=== PATIENT | female | born 2000 | race Caucasian/White ===

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

== ENCOUNTER 2021-01-05 16:35 | Inpatient (IN) | payer OTHER, SELFPAY ==
[2021-01-05] VITALS (62 sets, daily range): BP systolic 89–123; BP diastolic 45–88; PULSE 61–99; TEMP 36.3; O2SAT 98–100; BMI 29.5
[2021-01-05 20:03] LABS: Basophils Absolute Auto 0.1 K/mm3 (0.0-0.1); Basophils Percent Auto 0.4 % (0.2-1.2); Eosinophils Absolute Auto 0.1 K/mm3 (0-0.3); Eosinophils Percent Auto 0.7 % (0-4.4); Hematocrit 34.6 % (37.0-47.0); Hemoglobin 10.8 g/dL (12.0-15.0); Immature Granulocyte Absolute 0.11 K/mm3 (0.00-0.031); Immature Granulocyte Percent A 0.7 % (0-0.5); Lymphocytes Absolute Auto 1.95 K/mm3 (0.9-3.2); Lymphocytes Percent Auto 12.1 % (18.3-44.2); Mean Corpuscular HGB Conc 31.2 g/dl (32-36); Mean Corpuscular Hemoglobin 26.3 pg (26-34); Mean Corpuscular Volume 84.4 fl (80-100); Mean Platelet Volume 9.4 fl (7.4-10.4); Monocytes Absolute Auto 1.2 K/mm3 (0.1-0.6); Monocytes Percent Auto 7.3 % (2.6-8.5); Neutrophils Absolute Auto 12.7 K/mm3 (1.3-6.7); Neutrophils Percent Auto 78.8 % (45.5-73.1); Platelet Count Result 335 k/mm3 (150-375); Red Cell Distribution Width 15.6 % (11.5-14.5); White Blood Count 16.2 K/mm3 (4.5-10.0)
[2021-01-05] MEDS: LACTATED RINGERS 1,000 ML 125 ML IV CONT ×2 (20:05→21:16)
--- NOTE | 2021-01-05 22:52 | WPDANESEPPF ---
Anes - Initial Pre Proc Eval Procedure: labor epidural Date/Time: 01/05/21 22:52 Surgeon: Wilfredo Toribio MD Pre Op Diagnosis: labor pain Pre Op Diagnosis: Contractions Patient Data Age: 20 Gender: F Height: 1.68 m Weight: 83 kg Last Vital Signs Temp 36.3 C L 01/05/21 21:15 Pulse 69 01/05/21 22:46 BP 89/49 L 01/05/21 22:46 Pulse Ox 100 01/05/21 22:51 Allergies Allergy/AdvReac Type Severity Reaction Status Date / Time No Known Allergies Allergy Verified 12/23/20 13:28 Home Medications Medication Instructions Recorded Confirmed Type ferrous sulfate 12/23/20 History prenat.vits,greg,uvy-swqc-pelyi 1 tablet PO DAILY 12/23/20 12/23/20 History [ #2] Laboratory Tests 01/05/21 01/05/21 19:55 19:55 WBC 16.2 K/mm3 H K/mm3 (4.5-10.0) RBC 4.10 M/mm3 L M/mm3 (4.2-5.4) Hgb 10.8 g/dL L g/dL (12.0-15.0) Hct 34.6 % L % (37.0-47.0) MCV 84.4 fl fl (80-100) MCH 26.3 pg pg (26-34) MCHC 31.2 g/dl L g/dl (32-36) RDW 15.6 % H % (11.5-14.5) Plt Count 335 k/mm3 k/mm3 (150-375) MPV 9.4 fl fl (7.4-10.4) Immature Gran % (Auto) 0.7 % H % (0-0.5) Neut % (Auto) 78.8 % H % (45.5-73.1) Lymph % (Auto) 12.1 % L % (18.3-44.2) [place] % (Auto) 7.3 % % (2.6-8.5) Eos % (Auto) 0.7 % % (0-4.4) Baso % (Auto) 0.4 % % (0.2-1.2) Lymph # (Auto) 1.95 K/mm3 K/mm3 (0.9-3.2) [place] # (Auto) 1.2 K/mm3 H K/mm3 (0.1-0.6) Eos # (Auto) 0.1 K/mm3 K/mm3 (0-0.3) Baso # (Auto) 0.1 K/mm3 K/mm3 (0.0-0.1) Abs Immat Gran (auto) 0.11 K/mm3 H K/mm3 (0.00-0.031) Absolute Neuts (auto) 12.7 K/mm3 H K/mm3 (1.3-6.7) Absolute Nucleated RBC 0.0 K/mm3 K/mm3 (0.0-0.012) Nucleated RBC % 0.0 % % (0.0-0.2) Blood Type B Negative Antibody Screen Positive Antibody Identification Pending Antigen Identification Pending PRITI, IgG Interpret Pending PRITI, Poly Interpret Pending PRITI, Complement Interp Pending Patient hx anesthesia problems: none Family hx anesthesia problems: none Results Review: All pre-operative results and documents have been reviewed as part of the pre-operative evaluation. [facility] Family History Family History (Updated 12/23/20 @ 13:32 by Fausto Orozco RN) Father Hypertension Smoker Grandparent Diabetes mellitus Alzheimer disease Chronic obstructive pulmonary disease Social History Social History Substance use: never Spiritual care concerns: No Anes - Eval Final PreProcedure Day of Procedure 01/05/21 22:52 Patient weight: overweight ASA classification: II Anesthesia type and monitoring: regional epidural and standard monitoring Results Review: All pre-operative results and documents have been reviewed as part of the pre-operative evaluation. Informed Consent: The patient's anesthetic plan and its attendant risks and benefits were discussed with the patient/family/POA. Questions were solicited and answers provided to the satisfaction of the patient/family/POA.
--- NOTE | 2021-01-05 23:18 | LDADM ---
This patient, Peggy Callahan, was admitted to Labor/Delivery/Recovery 103 on 01/05/21 at 16:35. Plans for labor, pain management and were discussed with patient. Patient/family oriented to hospital policies and general routines including ID bracelet, bed and alarms, visiting hours, pain management, procedures, bathroom and other care routines, personal items, smoking policy, room service/diet and guest tray routines, infant security routines, and visiting hours. Patient/Family are encouraged to report perceived risks to care and to ask questions if they do not understand what they are told or what they should do. See OBIX for further documentation.
[2021-01-06] VITALS (116 sets, daily range): BP systolic 93–120; BP diastolic 38–101; PULSE 55–129; RESP 16–18; TEMP 36.4–37.3; O2SAT 86–100
[2021-01-06] MEDS: LACTATED RINGERS 1,000 ML 125 ML IV CONT (04:30)
[2021-01-06] MEDS: OXYTOCIN 30 UNITS/NS 500 ML 30 UNITS/500 ML BAG 999 UNITS IV CONT (08:21)
--- NOTE | 2021-01-06 08:33 | WPDOBADMIT ---
Obstetrics - Admit Note Admission Note: record reviewed. No pertinent additions to the history and/or any subsequent changes in the physical findings that are not consistent with the expected course of the were found. Additions to the history and/or subsequent changes in the physical findings follow. None.
--- NOTE | 2021-01-06 08:33 | WPDHPUPDATE1 ---
History and Physical Update Update Date/Time: 01/06/21 08:33 History and Physical has been reviewed, including an updated exam of the patient. There are NO changes in the patient's condition. Risks, benefits, and alternatives have been discussed and questions answered. Patient agrees to proceed with procedure.
--- NOTE | 2021-01-06 08:33 | PM.OBPRVD ---
OB - Delivery Note Procedure Route of delivery: Delivery repair: chromic Specimen: Yes Anesthesia type: Epidural Disposition: floor Narrative: Patient prepped and draped in usual manner for this procedure. Maternal expulsive efforts delivered vertex the rest of baby without difficulty. Cord was clamped and cut baby was passed off to the towel cabinet repairer who was in attendance due to meconium-stained fluid. Placenta delivered spontaneously. Small amount of oozing was noted at and periurethral E which was rendered hemostatic with a [id number] at 2 0 chromic suture. Uterus was well contracted no significant bleeding at this point seizure was considered terminated. Baby Weeks of gestation at delivery: 38 Infant gender: Male Weight (pounds): 5 Weight (ounces): 7 score one minute: 8 score five minutes: 9
[2021-01-06] MEDS: OXYTOCIN 30 UNITS/NS 500 ML 30 UNITS/500 ML BAG 125 UNITS IV CONT (08:43)
[2021-01-06] MEDS: BENZOCAINE 20% AER SPR (*SP) 56 GM CAN 1 SPRAY TOPICAL (10:35)
[2021-01-06] MEDS: WITCH HAZEL 40 PADS 1 PAD TOPICAL (10:35)
[2021-01-06] MEDS: ACETAMINOPHEN 325 MG TABLET 650 MG PO ×2 (10:35→17:15)
--- NOTE | 2021-01-06 10:53 | OBPPTRN ---
Patient transferred to post room # 286 via wheelchair accompanied by in open crib. Oriented to unit, room, information board, rooming in, admission packet and security measures. Patient verbalizes understanding. PT sole recipient or instructions and care. No barriers to learning identified. PT received instructions and care per one to one discussion, mom baby care guide and demonstration this shift.
[2021-01-06] MEDS: LANOLIN (LANSINOH) 7.5 GM CREAM 1 APPLIC TOPICAL (11:00)
[2021-01-06 11:41] LABS: Rapid Plasma Reagin Non-Reactive (NonReactive)
[2021-01-06] MEDS: MULTIVIT/MIN/PREN/FOL AC/IRON TABLET 1 TAB PO (12:00)
[2021-01-06] MEDS: DOCUSATE SODIUM 100 MG CAPSULE PO ×2 (12:00→17:16)
[2021-01-06] MEDS: IBUPROFEN 600 MG TABLET PO ×2 (12:00→17:16)
--- NOTE | 2021-01-06 12:25 | PC.NURSE ---
Mother called out for assist with feeding. Infant is able to freely thrust tongue past gum ridge and flange both lips. Skin is intact on both nipples, no redness and bruising noted. Reviewed feeding cues, frequencies, duration of feedings, feeding elimination flow sheet, and signs of adequate intake. Demonstrated stimulation techniques to wake for feeding. Assisted with infant to breast. Reviewed positioning/alignment in cross cradle, holding breast in ?U? hold and guided asymmetrical latch on. Reviewed rational for each. able to latch correctly within a few attempts. Infant nursed eagerly with steady draws and occasional/frequent swallowing noted, some pausing noted. Reviewed signs of a correct latch, effective nursing and suck swallow ratio. Suggested mother stimulate while feeding to increase stimulation for milk supply, for increased intake and to assist with maintaining deep latch. would slip to shallow latch causing tenderness. Demonstrated how to adjust latch more deeply while feeding if needed. Mother reports she can feel the difference in latch with no tenderness. Nipple care reviewed of lanolin after feedings, warm compresses as needed. Instructed mother to call out for RN assistance if she is unable to latch for feeding or she has discomfort with nursing. Instructed feeding should be initiated three hours from start of last feeding or if feeding cues are noted before. Mother voiced understanding of information shared.
[2021-01-06] MEDS: SIMETHICONE 80 MG TAB.CHEW PO (19:37)
[2021-01-07 03:45] VITALS: BP 105/70; PULSE 67; RESP 16; TEMP 36.7; O2SAT 100
[2021-01-07 05:43] LABS: Hematocrit 28.3 % (37.0-47.0); Hemoglobin 8.5 g/dL (12.0-15.0)
[2021-01-07] MEDS: POLYSACCHARIDE IRON COMPLEX 150 MG CAPSULE PO (07:18)
[2021-01-07] MEDS: MULTIVIT/MIN/PREN/FOL AC/IRON TABLET 1 TAB PO (07:18)
[2021-01-07] MEDS: IBUPROFEN 600 MG TABLET PO (07:18)
[2021-01-07 08:10] VITALS: BP 111/67; PULSE 81; RESP 16; TEMP 37; O2SAT 100
--- NOTE | 2021-01-07 08:38 | PM.OBDSVD ---
DS: Admitting Diagnosis Discharge Date 01/07/2021 Admitting Diagnosis OB - DS: Summary OB Procedures : None OB Procedures Intrapartum: Spontaneous Vag Delivery OB Procedures: : None Time Spent with Patient Time attestation: Total time spent providing and/or coordinating discharge services: DS: Data Data Completed and Pending Pending studies at discharge: Pending at discharge 01/06/21 09:31 Surgical [PTH] Routine Labs on day of discharge: Labs from last 24 hours 01/07/21 01/07/21 01/05/21 03:46 03:46 19:55 Hgb 8.5 L Hct 28.3 L RPR Non-reactive Blood Type B Negative Antibody Screen TNP Screen Negative Baby's Blood Type O pos Baby's PRITI Negative Doses of RhIg Required 1 Discharge Plan Discharge Discharging Clinician: Wilfredo Toribio Patient Disposition: Home, Self-Care Activity: as tolerated Diet: as tolerated Patient Instructions: Antibiotic Form Stand Alone Forms: General Discharge Information Follow-up/Referrals: Wilfredo Toribio MD [Physician] - 3 Weeks Discharge Medications: New ibuprofen 600 mg Tablet 600 mg PO Q6H PRN (Reason: Cramping) Qty: 30 RF: 0 Continued #2 Tablet 1 tablet PO DAILY RF: 0 ferrous sulfate 150 mg DAILY RF: 0 Date of admission: 01/05/21 16:35 Primary Care Provider: PHYSICIAN,[employer] TECHNICIAN Admitting Provider: Wilfredo Toribio Attending physician on admission: Wilfredo Toribio Condition: Stable
--- NOTE | 2021-01-07 10:13 | WPDANLDPN2 ---
Anes-Prog Note L&D Date/Time: 01/07/21 10:13 Comfortable throughout: labor and delivery Neuraxial method: epidural Epidural/Spinal procedure site: clean & non-tender Neuro status: Neuro function grossly intact. Cardiovascular status: normal Respiratory status: normal Airway patency: baseline Mental status: baseline Post-Op hydration status: normal Vital Signs: Last Vital Signs Temp 37.0 C 01/07/21 08:10 Pulse 81 01/07/21 08:10 Resp 16 01/07/21 08:10 BP 111/67 01/07/21 08:10 Pulse Ox 100 01/07/21 08:10 Pain score (VAS): 03/17 Post-procedural complaints: none Patient feedback: Patient satisfied with anesthetic care.
[2021-01-07] MEDS: RHO(D) IMMUNE GLOBULIN 300 MCG/2 ML SYRINGE IM (11:36)
--- NOTE | 2021-01-07 12:30 | PC.NURSE ---
Consult with pt., mother reports infant is sleepy after circumcision. Assured mother this is normal and should resolve within a few hours. Observed mother is able to independently latch infant with appropriate positioning/alignment. eagerly latches on first attempt with long rhythmical draws and frequent swallowing noted. She denies any nipple discomfort, is feeding as required and waking infant to feed if needed. Infant has had at least 8 effective feedings in the past 24 hours, and is currently meeting outcomes for weight, output, jaundice and feeding frequencies. Mother states she feels confident to continue effective at home. Reviewed transition to breast milk, signs of adequate intake, and engorgement/relief. Instructed to call ICP if intake/output less than required. Reviewed regular medications mother is taking. Information provided per Padma. Reviewed community resources on the [employer] website and in the Mom/Baby guide. Information on outpatient services provided. Mother has no further questions at this time. Mother reports she will be with her mother for assist with care. Assisted mother with a pump thru her insurance. Instructed feeding should be initiated three hours from start of last feeding or if feeding cues are noted before until seen by ICP. Mother voiced understanding of information shared.
--- NOTE | 2021-01-07 12:36 | PCCCNOTE ---
Received consult for teen; FOB not involved. Met with pt. and her mother at bedside. Pt. lives with her mother and father. She will discharge home with them along with today. She states her parents are supportive. She states having all needed items to care for at return home. She states being current on WIC. She has no other children. She confirms that FOB is not involved; she has no questions or concerns regarding this. Provided and counseling resources for her to review. She accepted same. Encouraged she contact any/all of interest. Nursing aware of above. No further care coordination needs indicated.
[2021-01-08 09:39] VITALS: BP 120/72; PULSE 78; RESP 20; TEMP 37.1; O2SAT 100
== END 2021-01-07 14:32 | disposition home or self-care (01) | DRG 560 ==
LOC: ANHLDR 20:11 → ANHOB2 01-06 11:11
PROVIDERS: Admitting Provider Obstetrics & Gynecology; Visit Provider Obstetrics & Gynecology
DX: O76 Abnormality in fetal heart rate and rhythm complicating labor and delivery (principal); O71.82 Other specified trauma to perineum and vulva; O77.0 Labor and delivery complicated by meconium in amniotic fluid; Z3A.38 38 weeks gestation of pregnancy; Z37.0 Single live birth
CPT/HCPCS: 36415; 85014; 85018; 85025; 85461; 86592; 86850; 86880; 86900; 86901; 86902; 88307; 90384; A9270; J2590; J2790; J2795; J7120

== ENCOUNTER 2021-06-21 19:11 | Emergency (ER) | payer OTHER, SELFPAY ==
[2021-06-21 19:13] VITALS: BP 116/69; PULSE 75; RESP 14; TEMP 36.2; O2SAT 100
--- NOTE | 2021-06-21 19:25 | ED.DENTAL ---
HPI - Dental/Oral General Chief complaint: Dental/Oral <Marleny Martin PA-C - Last Filed: 06/21/21 21:36> Stated complaint: left lower dental pain <ADAMA Andino Last Filed: 06/21/21 21:36> Time Seen by Provider: 06/21/21 19:20 <Marleny Martin PA-C - Last Filed: 06/21/21 21:36> History of Present Illness HPI Narrative: Patient is a 21-year-old female here for evaluation of left lower dental pain for the past 4 days. The pain is aggravated by cold liquids. She has a history of poor dentition, and does have follow-up with a dentist in 4 days. Denies relief after 1 g of Tylenol today. She is not taking any antibiotics. Denies trismus, fevers, swelling, trouble swallowing. Denies tobacco use currently, but she did smoke in the past. <Marleny Martin PA-C - Last Filed: 06/21/21 21:36> Related Data Home medications: Home Medications Medication Instructions Recorded Confirmed ferrous sulfate 150 mg DAILY 12/23/20 01/06/21 prenat.vits,greg,svp-tayd-uizjp 1 tablet PO DAILY 12/23/20 12/23/20 <ADAMA Andino Last Filed: 06/21/21 21:36> Allergies/adverse reactions: Allergies Allergy/AdvReac Type Severity Reaction Status Date / Time No Known Allergies Allergy Verified 06/21/21 20:47 <ADAMA Andino Last Filed: 06/21/21 21:36> Review of Systems Review of Systems: Gen.: Denies fevers or chills Eyes: Denies eye pain or visual change ENT: Reports dental pain. Denies congestion Respiratory: Denies shortness of breath or cough CV: Denies chest pain or palpitations GI: Denies abdominal pain nausea, emesis or diarrhea denies burning, urgency, frequency or hematuria Musculoskeletal: Denies back pain or muscle pain Neuro: Denies numbness, tingling, weakness or focal weakness Skin: Denies rash Except as documented, all other systems reviewed and negative <Marleny Martin PA-C - Last Filed: 06/21/21 21:36> All systems reviewed & are unremarkable except as noted in HPI and below <Marleny Martin PA-C - Last Filed: 06/21/21 21:36> [facility] Family History Family History: Family History (Updated 12/23/20 @ 13:32 by Fausto Orozco RN) Father Hypertension Smoker Grandparent Diabetes mellitus Alzheimer disease Chronic obstructive pulmonary disease <Marleny Martin PA-C - Last Filed: 06/21/21 21:36> Social History Social History: Social History Smoking status: Never smoker Substance use: never Spiritual care concerns: No <Marleny Martin PA-C - Last Filed: 06/21/21 21:36> Exam Narrative: Gen: Alert, oriented, no acute distress. Eyes: EOMI, no icterus ENT: Tolerating secretions. Tooth 16 is cracked. Dental caries throughout. No submandibular swelling or periapical abscess palpated. Pulm: Respirations even and unlabored, symmetric thorax expansion, no audible stridor or visible cyanosis CV: Regular rate per telemetry GI: No distension, no voluntary/involuntary guarding Neuro: AOx4, moves all extremities without apparent difficulty or weakness, follows commands Skin: No jaundice, no visible bruising, rashes, lesions or wounds on exposed skin Psych: Normal mood/affect, insight/judgement good, adequate fund of knowledge, recent/remote memory intact <Marleny Martin PA-C - Last Filed: 06/21/21 21:36> Course FOOD STYLIST/PA Physician Supervision For this patient encounter, I reviewed the FOOD STYLIST or PA documentation, treatment plan, and medical decision making. <Can Lopez MD - Last Filed: 06/22/21 03:13> Vital Signs Vital signs: Vital Signs Temperature 97.1 F L 06/21/21 19:13 Pulse Rate 75 06/21/21 19:13 Respiratory Rate 14 06/21/21 19:13 Blood Pressure 116/69 06/21/21 19:13 Pulse Oximetry 100 06/21/21 19:13 Temperature 97.1 F L 06/21/21 19:13 Pulse Rate 83 06/21/21 20:23 Respiratory Rate 14 06/21/21 19:13 Blood Pressure 107
[2021-06-21 20:23] VITALS: BP 107/74; PULSE 83; O2SAT 100
[2021-06-21] MEDS: IBUPROFEN 400 MG TABLET 800 MG PO (20:25)
== END 2021-06-21 21:01 | disposition home or self-care (01) ==
PROVIDERS: Emergency Provider Emergency Medicine; PCP Emergency Medicine
DX: K08.89 Other specified disorders of teeth and supporting structures (principal)
CPT/HCPCS: 99283; A9270

== ENCOUNTER 2021-07-15 13:28 | Emergency (ER) | payer OTHER, SELFPAY ==
[2021-07-15 13:48] VITALS: BP 101/62; PULSE 85; RESP 16; TEMP 37.2; O2SAT 99
--- NOTE | 2021-07-15 13:54 | ED.GENADULT ---
HPI - General Adult General Chief complaint: Wound/Laceration Stated complaint: Infected Belly Button Time Seen by Provider: 07/15/21 13:54 Source: patient Mode of arrival: ambulatory Limitations: no limitations History of Present Illness HPI narrative: 21-year-old female presents with complaint of tenderness, odor and drainage from bellybutton that she noticed yesterday. Denies piercing. Denies trauma. Afebrile. No other complaints today. All systems reviewed and negative except as noted above. Related Data Allergies Allergy/AdvReac Type Severity Reaction Status Date / Time No Known Allergies Allergy Verified 07/15/21 13:32 Review of Systems Review of Systems: CONSTITUTIONAL: Denies fever, chills, or sweats. EYES: Denies visual changes, redness, or discharge. ENT: Denies rhinorrhea, congestion, sore throat, or otalgia. CARDIOVASCULAR: Denies chest pain, palpitations, or edema. RESPIRATORY: Denies cough or dyspnea. GASTROINTESTINAL: Denies abdominal pain, nausea, vomiting, or diarrhea. GENITOURINARY: Denies dysuria or hematuria. SKIN: Denies rash or itching. Reports tenderness, drainage and odor from bellybutton. MUSCULOSKELETAL: Denies back pain, joint pain, or myalgia. NEUROLOGIC: Denies headache, numbness, or weakness. PSYCHIATRIC: Denies anxiety or depression. All other systems reviewed are negative, except as documented in HPI. [facility] Family History Family History (Updated 12/23/20 @ 13:32 by Fausto Orozco RN) Father Hypertension Smoker Grandparent Diabetes mellitus Alzheimer disease Chronic obstructive pulmonary disease Social History Social History Smoking status: Never smoker Substance use: never Spiritual care concerns: No Comments At time of signature, agree with nursing past medical, surgical, social and family history. There is no relevant family history pertinent to the presenting complaint. Exam Narrative: GENERAL: This is a well-nourished, well-developed patient, in no apparent distress. HEAD: normocephalic, atraumatic. EYES: PERRL. Sclera clear/white. Vision is grossly intact. EARS: External ears normal NOSE: External nose normal NECK: Neck supple, non-tender without lymphadenopathy, masses or thyromegaly. CARDIOVASCULAR: Regular rate and rhythm without murmurs, gallops, or rubs. RESPIRATORY: Clear to auscultation. Breath sounds equal bilaterally. No wheezes, rales, or rhonchi. GASTROINTESTINAL: Abdomen soft, non-tender, nondistended. Bowel sounds are active. No hepato-splenomegaly, or palpable masses. No guarding. SKIN: warm, Dry, intact with no suspicious lesions or rash, good texture and turgor. Erythema to umbilicus with mild swelling and yellowish malodorous drainage. NEURO: awake, alert, and oriented to person, place and time. There were no obvious focal neurologic abnormalities. EXTREMITIES: Normal range of motion to all extremities. Course Course Level of Care: Express Care Visit Vital Signs Vital signs: Vital Signs Temperature 37.2 C 07/15/21 13:48 Pulse Rate 85 07/15/21 13:48 Respiratory Rate 16 07/15/21 13:48 Blood Pressure 101/62 07/15/21 13:48 Pulse Oximetry 99 07/15/21 13:48 Temperature 37.2 C 07/15/21 13:48 Pulse Rate 85 07/15/21 13:48 Respiratory Rate 16 07/15/21 13:48 Blood Pressure 101/62 07/15/21 13:48 Pulse Oximetry 99 07/15/21 13:48 Reviewed Medical Decision Making MDM Narrative Medical decision making narrative: Patient is aware of diagnosis, understands and agrees to treatment plan. Anticipatory guidance given. Patient agrees to follow-up as directed and is aware of reasons to seek care at the emergency department. Portions of this record may have been created with voice recognition software Vital Signs Vital Signs: Vital Signs Temperature 37.2 C 07/15/21 13:48 Pulse Rate 85 07/15/21 13:48 Respiratory Rate 16 07/15/21 13:48 Blood Pressure 101/62 07/15/21 13:48 Pulse Oximetry 99 05/1
== END 2021-07-15 14:00 | disposition home or self-care (01) ==
PROVIDERS: Emergency Provider Nurse Practitioner Family
DX: L03.316 Cellulitis of umbilicus (principal)
CPT/HCPCS: 99213; G0463

== ENCOUNTER 2023-10-02 19:25 | Emergency (ER) | payer SELFPAY ==
[2023-10-02 19:28] VITALS: BP 108/64; PULSE 70; RESP 15; TEMP 37; O2SAT 100
--- NOTE | 2023-10-02 20:27 | ED.FEMALEGU ---
HPI - Female Genitourinary General Chief complaint: Urogenital-Female Stated complaint: std testing Time Seen by Provider: 10/02/23 20:15 Source: patient Mode of arrival: ambulatory Limitations: no limitations History of Present Illness HPI Narrative: Peggy is a 23-year-old female patient presenting to the ER today with complaints of possible STI exposure. She reports that her significant other had been cheating on her and came home and had vaginal intercourse with her. Reports that she has had some vaginal itching and slight odor without discharge. She denies any pelvic pain, abdominal pain, or back pain. Last menstrual period was at the beginning of the month. Denies any fevers, chills, or body aches. Related Data Allergies Allergy/AdvReac Type Severity Reaction Status Date / Time No Known Allergies Allergy Verified 07/15/21 13:32 Review of Systems Review of Systems: Pertinent positives per HPI. Patient denies any fever, chills, rash, headache, visual changes, dizziness, cough, runny nose, sore throat, shortness of breath, chest pain, palpitations, nausea, vomiting, diarrhea, constipation, abdominal pain, or any urinary issues. [facility] Family History Family History Father Hypertension Smoker Grandparent Diabetes mellitus Alzheimer disease Chronic obstructive pulmonary disease Social History Social History Smoking status: Never smoker Substance use: never Spiritual care concerns: No Comments At the time of my signature, I reviewed and agree with the nursing past medical, surgical, social, and family history. There is no relevant family history pertinent to the patient complaint. Exam Narrative: General: Well-developed, well nourished, in no apparent distress. Head: Normocephalic, atraumatic. Cardio: Regular rate and rhythm, s1 and s2 normal, no murmur appreciated. Resp: Clear to auscultation bilaterally, no rhonchi, rales, wheezing or rubs. Abdomen: Soft, pliable, bowel sounds present in all quadrants, non-tender to palpation, no organomegly, no CVAT tenderness. :Deferred Course Course Emergency Course: Portions of this record may have been created with voice recognition software. Vital Signs Vital signs: Vital Signs Temperature 37.0 C 10/02/23 19:28 Pulse Rate 70 10/02/23 19:28 Respiratory Rate 15 10/02/23 19:28 Blood Pressure 108/64 10/02/23 19:28 Pulse Oximetry 100 10/02/23 19:28 Oxygen Delivery Room Air 10/02/23 19:28 Temperature 37.0 C 10/02/23 19:28 Pulse Rate 70 10/02/23 19:28 Respiratory Rate 15 10/02/23 19:28 Blood Pressure 108/64 10/02/23 19:28 Pulse Oximetry 100 10/02/23 19:28 Oxygen Delivery Room Air 10/02/23 19:28 Vital signs reviewed MDM - Female Genitourinary MDM Narrative Medical decision making narrative: At the time of visit patient is resting comfortably on the exam table. Patient appears to be nontoxic. Labs: Urinalysis testing for was negative, urinalysis is positive for leukocytes, white blood cells, and bacteria., Trichomonas positive in the ER today. Chlamydia positive, gonorrhea negative, bacterial vaginosis pending, and genital culture pending for yeast Plan: Patient is concerned about sexual transmitted infection in the ER today. Trichomonas and chlamydia was positive. Will treat for probable UTI.Supportive measures were discussed with the patient and they voiced understanding discharge instructions and agrees to treatment plan. Return precautions reviewed Differential Diagnosis Differential diagnosis: Likely bacterial vaginosis, trichomoniasis, cervicitis and vaginitis Lab Data Labs: Lab Results 10/02/23 10/02/23 10/02/23 Range/Units 20:22 20:31 20:41 Urine Color Yellow (Yellow) Urine Appearance Clear (Clear) Urine pH 6.5 (5.0-9.0)
[2023-10-02 20:37] LABS: Appearance Urine Clear (Clear); Bacteria Urine 1+ /hpf; Bilirubin Urine Negative (Negative); Blood Urine Negative (Negative); Color Urine Yellow (Yellow); Glucose Urine UA Negative (Negative); Ketones Urine Negative (Negative); Leukocyte Esterase Ur 1+ LEU/UL (Negative); Nitrate Urine Negative (Negative); Non Pathogenic Casts 0-2; Protein Urine Negative (Negative); RBC Urine 0-2 /hpf (0-2); Specific Grav Ur 1.028 (1.001-1.035); Squamous Epithelial Cell Urine None Seen /hpf (Few); WBC Urine 21-50 /hpf (0-3); pH Urine 6.5 (5.0-9.0)
[2023-10-02 20:38] LABS: Add Urine Microscopic? YES
[2023-10-02 20:43] LABS: BEDSIDEPREGUCG Negative
[2023-10-02 21:34] LABS: Trichomonas Vag PCR DETECTED (NOT DETECTE)
[2023-10-02 22:07] LABS: Chlamydia trachomatis DETECTED (NOT DETECTE); Neisseria gonorrhoeae PCR NOT DETECTED (NOT DETECTE)
[2023-10-02 22:27] VITALS: PULSE 74; RESP 15; O2SAT 100
[2023-10-04 15:09] LABS: Bacterial Vaginosis POSITIVE (NEGATIVE)
== END 2023-10-02 22:28 | disposition home or self-care (01) ==
LOC: ANHED 22:06
PROVIDERS: Student in an Organized Health Care Education/Training Program; Emergency Provider Nurse Practitioner Family
DX: N39.0 Urinary tract infection, site not specified (principal); A59.01 Trichomonal vulvovaginitis; A74.9 Chlamydial infection, unspecified
CPT/HCPCS: 81001; 81025; 81513; 87070; 87077; 87086; 87088; 87186; 87491; 87591; 87661; 99284

== ENCOUNTER 2024-08-07 12:04 | Emergency (ER) | payer OTHER, SELFPAY ==
--- NOTE | ~2024-08-07 | US_ITS ---
EXAMINATION: US OB <=14 wk fetus w TV DATE: 08/07/2024 13:46 INDICATION: Vaginal bleeding during early TECHNIQUE: Real-time pelvic ultrasound utilizing both a transvaginal and transabdominal probe was pe rformed. The interpreting radiologist was not present for the study. COMPARISON: None. FINDINGS: The uterus measures 9.8 x 5.5 x 7.3 cm. There is an intrauterine gestational sac. A yolk sac and fet al pole are identified. The crown rump length measures 4 mm, which correlates with an estimated gesta tional age of 6 weeks and 1 days. Visualized grayscale imaging there appears to be heart motion . This appears be confirmed on the M-mode Doppler images however a definitive heart rate is unable be established. There is a trace amount of anechoic fluid within the endocervical canal measuring 1 mm in thickness. The right ovary measures 2.8 x 1.5 x 2.6 cm. The left ovary measures 2.3 x 2.3 x 1.6 cm. There are fe w small anechoic follicles in the right ovary. Vascular flow identified in both ovaries on color Dopp ler. There is no free fluid in the pelvis. IMPRESSION: 1. Single living fetus with visible heart motion identified but a definitive heart rate is unab le to be established on the provided images. 2. Gestational age by ultrasound of 6 weeks 1 day(s) +/- 4 day(s) with ultrasound estimated date of delivery (HALEY) of 04/01/2025. Reviewed, dictated and finalized at location A. IMPRESSION: 1. Single living fetus with visible heart motion identified but a definit yamilka heart rate is unable to be established on the provided images. 2. Gestational age by ultrasound of 6 weeks 1 day(s) +/- 4 day(s) with ultraso und estimated date of delivery (HALEY) of 04/01/2025.
--- OUTSIDE RECORDS SUMMARY | 2024-08-07 12:09 | XMS_ITS | Clinical Summary ---
Author Organization [facility] Address [address] [place] [address] Care Team Providers Care Timber Killer Name Role Phone No, Physician Primary Care Provider [phone] Allergies Active Allergy Reactions Criticality Noted Date Comments Coconut Rash Medium 01/04/2024 Medications acetaminophen (TYLENOL) 500 mg tabletIndicatio ns:Back Pain,Pain Take 1 tablet (500 mg total) by mouth every 6 (six) hours as needed for pain 30 tablet 2 Active EPINEPHrine 0.3 mg/0.3 mL auto-injection syringeIndicati ons:Anaphylaxis Inject to outer thigh as needed for severe allergic reaction (examples, but not limited to: difficulty breathing, throat swelling) 2 each 2 4 Active Social History Tobacco Use Types Packs/Day Years Used Date Smoking Tobacco: Never Assessed Personal Safety Answer Date Recorded Have you ever been in or are you currently in a harmful physical or emotional relationship or is someone making you feel afraid or unsafe? 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 Gender Identity Not on file Sexual Orientation Not on file Obstetrics History Last Filed Vital Signs Vital Sign Reading Time Taken Comments Blood Pressure 101/69 01/04/2024 7:17 PM CDT Pulse 75 01/04/2024 7:17 PM CDT Temperature 36.7 C (98.1 F) 01/04/2024 7:17 PM CDT Respiratory Rate 18 01/04/2024 7:17 PM CDT Oxygen Saturation 99% 01/04/2024 7:17 PM CDT Inhaled Oxygen Concentration - - Weight 65.8 kg (145 lb 1 oz) 01/04/2024 5:30 PM CDT Height 170.2 cm (5' 7) 01/04/2024 5:30 PM CDT Body Mass Index 22.72 01/04/2024 5:30 PM CDT Plan of Treatment Health Maintenance Due Date Last Done Comments Cervical Cancer Screening 2001 Depression Screening 2001 Hepatitis C Screening 2001 Regular Well Visit/Exam 18-64 2019 Influenza Vaccine (Season Ended) 2024 DTaP/Tdap/Td Vaccine (8 - Td or Tdap) 10/23/2032 10/23/2022, 09/20/2012, 06/15/2006, Additional history exists Hepatitis B Screening Completed 04/06/2002 , 2001, 2001 Pneumococcal vaccine <65 Completed 003, 2001, 2001, Additional history exists Varicella Vaccines Completed 09/08/2011, 07/03/2002 HPV Vaccines Completed 11/07/2015, 09/20/2012 Meningococcal B Vaccine Completed 07/15/2018, 06/14 Insurance [facility] PLUS [employer] [facility] HMO [facility] Care Teams Timber Killer Relationship Specialty Start Date End Date No, Physician PCP - General 09/18/23
--- OUTSIDE RECORDS SUMMARY | 2024-08-07 12:09 | XMS_ITS | Clinical Summary ---
Author Organization [facility] Address [address] [place] [address] Care Team Providers Care Grant Officer Name Role Phone Trell Russell MD Primary Care Provider Source Comments [facility],non-owned Affiliates and Associated Physician Practices is amultiple site organization consisting of ambulatory clinics and hospital sitesin [place], [place], [place] and [place]. This disclosure is being madepursuant to the Care Everywhere program and may not contain all information available regarding this patient. 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 Gender Identity Not on file Sexual Orientation Not on file Last Filed Vital Signs Vital Sign Reading Time Taken Comments Blood Pressure 123/74 02/07/2023 10:16 PM AUTOMATIC BLOCKER Pulse 75 02/07/2023 10:16 PM AUTOMATIC BLOCKER Temperature 36.7 C (98.1 F) 02/07/2023 10:16 PM AUTOMATIC BLOCKER Respiratory Rate 17 02/07/2023 10:16 PM AUTOMATIC BLOCKER Oxygen Saturation 100% 02/07/2023 10:16 PM AUTOMATIC BLOCKER Inhaled Oxygen Concentration - - Weight 59 kg (130 lb) 02/07/2023 10:16 PM AUTOMATIC BLOCKER Height 170.2 cm (5' 7) 02/07/2023 10:16 PM AUTOMATIC BLOCKER Body Mass Index 20.36 02/07/2023 10:16 PM AUTOMATIC BLOCKER Plan of Treatment Health Maintenance Due Date Last Done Comments PAP SMEAR 2001 HIV SCREENING 2016 HPV VACCINE (1 - 3-dose series) 2016 MENINGOCOCCAL (Group B) VACC INE SHARED DECISION-MAKING (1 of 2 - Standard) 2017 DTAP/TDAP/TD VACCINES (1 - Tdap) 2020 HEPATITIS B VACCINE (1 of 3 - 19+ 3-dose series) 2020 CHLAMYDIA/GONORRHEA SCREENING 06/21/2023 06/20/2022 COVID-19 VACCINE (1 - 2023-2 5 season) 2023 DEPRESSION SCREENING 03/08/2024 INFLUENZA VACCINE (Season Ended) 2024 ZOSTER VACCINE (1 of 2) 2051 HEPATITIS C SCREENING Completed 06/20/2022 HIB VACCINE Aged Out No longer eligi ble based on patient's age to complete this topic MENINGOCOCCAL GROUPS A/C/Y/W VACCINE Aged Out No longer eligible b ased on patient's age to complete this topic PNEUMOCOCCAL VACCINE Aged Out No long er eligible based on patient's age to complete this topic Insurance [facility] [place] [address] Care Teams Grant Officer Relationship Specialty Start Date End Date Trell Russell MD [address] [place] [address] PCP - General 07/07/21
--- OUTSIDE RECORDS SUMMARY | 2024-08-07 12:09 | XMS_ITS | Referral Summary ---
Author Organization [facility] Address [address] [place] [address] Care Team Providers Care Manager Animation Name Role Phone No, Physician Primary Care Provider [phone] Allergies Active Allergy Reactions Criticality Noted Date [...] on file Legal Sex Female 7:16 AM COMMIS CHEF Gender Identity Not on file Sexual Orientation [...] 01/04/2024 5:30 PM CDT Plan of Treatment Not on file Insurance [facility] CHOICE PLUS [facility] HMO/PPO Address: [address] [address] [place] [address] [facility] HMO [facility] CHOICE PLUS [facility] H[facility]/PPO Address: [address] [place] [address] [facility] CHOICE PLUS [facility] HMO/PPO Address: [address] [place] [address] Care Teams Manager Animation Relationship Specialty Start Date End Date No, Physician PCP - General 09/18/23
[2024-08-07 12:15] VITALS: BP 117/56; PULSE 75; RESP 17; TEMP 36.6; O2SAT 100
[2024-08-07 13:20] LABS: Add Urine Microscopic? YES; Appearance Urine Clear (Clear); Bacteria Urine 4+ /hpf; Bilirubin Urine Negative (Negative); Blood Urine Trace (Negative); Color Urine Yellow (Yellow); Glucose Urine UA Negative (Negative); Ketones Urine Negative (Negative); Leukocyte Esterase Ur 2+ LEU/UL (Negative); Nitrate Urine Positive (Negative); Non Pathogenic Casts 0-2; Protein Urine Negative (Negative); RBC Urine 0-2 /hpf (0-2); Specific Grav Ur 1.019 (1.001-1.035); Squamous Epithelial Cell Urine Occasional /hpf (Few); Urobilinogen Urine 0.2 mg/dL (<2.0); WBC Urine 21-50 /hpf (0-3)
[2024-08-07 13:26] LABS: Alanine Aminotransferase 11 U/L (6-35); Albumin Level 4.2 g/dL (3.5-5.1); Alkaline Phosphatase 69 U/L (38-126); Anion Gap 8 mmol/L (4-12); Aspartate Amino Transferase 22 U/L (14-36); Bilirubin,Total 0.3 mg/dL (0.2-1.3); Blood Urea Nitrogen 10 mg/dL (7-17); Calcium 9.5 mg/dL (8.4-10.2); Carbon Dioxide 24 mmol/L (22-30); Chloride 105 mmol/L (98-107); Estimated CRCL calculation 122 ml/min; Estimated Glomerular Filt Rate > 60; Glucose 87 mg/dL (65-110); Potassium 4.1 mmol/L (3.4-5.0); Sodium 137 mmol/L (137-145)
--- OUTSIDE RECORDS SUMMARY | 2024-08-07 14:40 | XMS_ITS | Clinical Summary ---
Author Organization 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 Gender Identity Not on file Sexual Orientation [...] Meningococcal B Vaccine Completed 07/15/2018, 06/14 Insurance [facility]PPO Address: [facility] [address] [place] [address] AETNA [facility] HMO [facility] PLUS [facility]/PPO Address: [address] [address] [place] [address] [facility] CHO[facility] PLUS [facility] H[facility]/PPO Address: [address] [address] [place] [address] Care Teams Civil Celebrant Relationship Specialty Start Date End Date No, Physician PCP - General 09/18/23
--- OUTSIDE RECORDS SUMMARY | 2024-08-07 14:40 | XMS_ITS | Referral Summary ---
Author Organization [facility] Address [address] [place] [address] Care Team Providers Care Machine Records Units Supervisor Name Role Phone No, Physician Primary Care Provider [phone] Allergies Active Allergy Reactions Criticality Noted Date [...] on file Legal Sex Female 7:16 AM BIT BENDER Gender Identity Not on file Sexual Orientation [...] Plan of Treatment Not on file Insurance [facility] CHOICE PLUS [facility] HMO [facility] PLUS [facility] PL[facility] Care Teams Machine Records Units Supervisor Relationship Specialty Start Date End Date No, Physician PCP - General 09/18/23
--- OUTSIDE RECORDS SUMMARY | 2024-08-07 14:40 | XMS_ITS | Clinical Summary ---
Author Organization [facility] [employer] Address [address] [place] [address] Care Team Providers Care Automobile Service Writer Name Role Phone Trell Russell MD Primary Care Provider Source Comments [facility] [employer],non-owned Affiliates and Associated Physician Practices is amultiple site organization consisting of ambulatory clinics and hospital sitesin [place], [place], [place] and [place]. This disclosure is being madepursuant to the Care Everywhere program and may not contain all information available regarding this patient. Last updated 17.[facility] [employer] Allergies No known active allergies Social History Tobacco Use Types Packs/Day Years Used Date Smoking Tobacco: Never Assessed Comments Unknown Sex and Gender Information Value Date Recorded Sex Assigned at Not on file Legal Sex Female 7:17 AM DREDGE HAND Gender Identity Not on file Sexual Orientation Not on file Last Filed Vital Signs Vital Sign Reading Time Taken Comments Blood Pressure 123/74 02/07/2023 10:16 PM DREDGE HAND Pulse 75 02/07/2023 10:16 PM DREDGE HAND Temperature 36.7 C (98.1 F) 02/07/2023 10:16 PM DREDGE HAND Respiratory Rate 17 02/07/2023 10:16 PM DREDGE HAND Oxygen Saturation 100% 02/07/2023 10:16 PM DREDGE HAND Inhaled Oxygen Concentration - - Weight 59 kg (130 lb) 02/07/2023 10:16 PM DREDGE HAND Height 170.2 cm (5' 7) 02/07/2023 10:16 PM DREDGE HAND Body Mass Index 20.36 02/07/2023 10:16 PM DREDGE HAND Plan of Treatment Health Maintenance Due Date [...] patient's age to complete this topic Insurance [facility] [place] [address] Care Teams Automobile Service Writer Relationship Specialty Start Date End Date Trell Russell MD [address] [place] [address] PCP - General 07/07/21
[2024-08-07 15:40] VITALS: BP 107/64; PULSE 75; RESP 16; TEMP 36.8; O2SAT 100
[2024-08-07 15:40] LABS: Trichomonas Vag PCR DETECTED (NOT DETECTE)
[2024-08-07 15:45] VITALS: BP 107/64; PULSE 76; RESP 16; O2SAT 100
[2024-08-07] MEDS: RHO(D) IMMUNE GLOBULIN 300 MCG/2 ML SYRINGE IM (15:51)
[2024-08-07 16:19] LABS: Chlamydia trachomatis NOT DETECTED (NOT DETECTE); Neisseria gonorrhoeae PCR NOT DETECTED (NOT DETECTE)
--- NOTE | 2024-08-07 16:48 | ED.GENADULT ---
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 Approximately weeks in gestation. Follows with Dr. Toribio. No dysuria. Concern for miscarriage. SAB 1. Related Data Allergies Allergy/AdvReac Type Severity Reaction Status Date / Time coconut AdvReac Intermediate Rash Verified 08/07/24 12:05 Review of Systems Review of Systems: All systems reviewed & are unremarkable except as noted in HPI and below Constitutional: Constitutional: Reports no additional constitutional complaints Cardiovascular: Cardiovascular: Reports no additional cardiovascular complaints Respiratory: Respiratory: Reports no additional respiratory complaints Gastrointestinal: Gastrointestinal: Reports no additional gastrointestinal complaints Genitourinary: Genitourinary: Reports no additional female genitourinary complaints [facility] Surgical History Surgical History (Updated 07/25/24 @ 16:14 by KATHERYN Pradhan) History of appendectomy Family History Family History Father Hypertension Smoker Grandparent Diabetes mellitus Alzheimer disease Chronic obstructive pulmonary disease Social History Social History (Updated 07/25/24 @ 16:15 by KATHERYN Pradhan) Smoking status: Never smoker Second hand tobacco smoke exposure: No Alcohol intake: never Substance use: never Substance use type: does not use Do You Feel Safe in your Home?: Yes Lack of Transportation: No Lack of Food: Never True Current Housing: I Have Housing Concerned About Future Housing: No Difficulty Paying Gas/Electric Bills: No Difficulty Paying for Meds: No Currently Unemployed: No Education: High School Diploma/GED Difficulty w/ Childcare or Family Care: No Living arrangements: other Additional living arrangements comments: single Occupation/Education: occupation Additional occupation/education comments: [employer] Gender identity (if verbalized by the patient): Female Sexual Orientation (if Verbalized by the Patient): Straight or Heterosexual Spiritual care concerns: No Exam Narrative: GENERAL: Well-appearing, well-nourished, and in no acute distress. HEAD: Normocephalic, atraumatic. ENT: Mucous membranes moist. CHEST: Clear to auscultation. No respiratory distress. HEART: Regular rate and rhythm. Normal peripheral pulses. ABDOMEN: Soft, nontender, nondistended. : Normal external genitalia, cervix nonfriable, pooling yellow discharge. EXTREMITIES: Normal range of motion. No edema. SKIN: Warm, dry, no rash. NEURO: Alert and oriented x3. PSYCH: Normal mood and affect. Course Course Emergency Course: Patient resting comfortably. Informed of results. Heartbeat identified but we do not know the rate. It may be low and patient may have threatened miscarriage. Also discussed STI need for her partner to be treated. She verbalized understanding. Vital Signs Vital signs: Vital Signs Temperature 97.9 F 08/07/24 12:15 Pulse Rate 75 08/07/24 12:15 Respiratory Rate 17 08/07/24 12:15 Blood Pressure 117/56 L 08/07/24 12:15 Pulse Oximetry 100 08/07/24 12:15 Oxygen Delivery Room Air 08/07/24 12:15 Temperature 98.3 F 08/07/24 15:40 Pulse Rate 76 08/07/24 15:45 Respiratory Rate 16 08/07/24 15:45 Blood Pressure 107/64 08/07/24 15:45 Pulse Oximetry 100 08/07/24 15:45 Oxygen Delivery Room Air 08/07/24 12:15 Medical Decision Making Vital Signs Vital Signs: Vital Signs Temperature 97.9 F 08/07/24 12:15 Pulse Rate 75 08/07/24 12:15 Respiratory Rate 17 08/07/24 12:15 Blood Pressure 117/56 L 08/07/24 12:15 Pulse Oximetry 100 08/07/24 12:15 Oxygen Delivery Room Air 08/07/24 12:15 Temperature 98.3 F 08/07/24 15:40 Pulse Rate 76 08/07/24 15:45 Respiratory Rate 16 08/07/24 15:45 Blood Pressure 107/64 08/07/24 15:45 Pulse Oximetry 100 08/07/24 15:45 Oxygen Delivery Room Air 08/07/24 12:15 Lab Data 08/07/24 13:10 Labs: Lab Results 08/07/24 08/07/24 Range/Units 13:10 14:38 Sodium 137 (137-145) mmol/L Potassium 4.1 (3.4-5.0) mmol/L Chloride 105 (98-107) mmol/L Carbon Dioxide 24 (22-30) mmol/L Anion Gap 8 (4-12) mmol/L BUN 10 (7-17) mg/dL Creatinine 0.59 L (0.7-1.0) mg/dL Estim Creat Clear Calc 122 ml/min Estimated GFR > 60 (59 - ) Glucose 87 (65-110) mg/dL Calcium 9.5 (8.4-10.2) mg/dL Total Bilirubin 0.3 (0.2-1.3) mg/dL AST 22 (14-36) U/L ALT 11 (6-35) U/L Alkaline Phosphatase 69 (38-126) U/L Total Protein 8.0 (6.3-8.2) g/dL Albumin 4.2 (3.5-5.1) g/dL Beta HCG, Quant 27800.00 mIU/ML Urine Color Yellow (Yellow) Urine Appearance Clear (Clear) Urine pH 6.0 (5.0-9.0) Ur Specific [place] 1.019 (1.001-1.035) Urine Protein Negative (Negative) mg/dL Urine Glucose (UA) Negative (Negative) mg/dL Urine Ketones Negative (Negative) mg/dL Ur Blood (Man) Trace (Negative) Urine Nitrate Positive H (Negative) Urine Bilirubin Negative (Negative) Urine Urobilinogen 0.2 (<2.0) mg/dL Leukocyte Esterase Rfl 2+ H (Negative) JORJE/UL Urine RBC 0-2 (0-2) /hpf Urine WBC 21-50 H (0-3) /hpf Ur Squamous Epith Cells Occasional (Few) /hpf Urine Bacteria 4+ H /hpf Urine Casts 0-2 C. trachomatis (PCR) Not detected (NOT DETECTE) N. gonorrhoeae (PCR) Not detected (NOT DETECTE) T. vaginalis (PCR) Detected A (NOT DETECTE) Bact Vaginosis Panel Pending Blood Type B Negative Antibody Screen Negative Screen Not Reportable Baby's Blood Type Not Reportable Baby's PRITI Not Reportable Doses of RhIg Required 1 Imaging Data Radiologist's impression: ITS Impressions Obstetrics Ultrasound 08/07/24 13:46 IMPRESSION: 1. Single living fetus with visible heart motion identified but a definitive heart rate is unable to be established on the provided images. 2. Gestational age by ultrasound of 6 weeks 1 day(s) +/- 4 day(s) with ultrasound estimated date of delivery (HALEY) of 04/01/2025. Discharge Plan Discharge Clinical Impression: Trichomoniasis of vagina, Urinary tract infection during , Threatened miscarriage Patient Disposition: Home Condition: Stable Instructions: Antibiotic Form, Trichomoniasis (ED), Urinary Tract Infection in (ED) Additional Instructions: You have trichomoniasis. Make sure your sexual partner is also treated. You should not have sex until you have both been fully treated and are no longer symptomatic. Additionally you have a urinary infection that you will be treated for. You did receive RhoGAM for your vaginal bleeding because your blood type is B negative. Your ultrasound could not detect the speed of your baby's heart rate, you will need a follow-up ultrasound in the next week. Follow-up with your OB. Patient Language: Slovenian Prescriptions: New metronidazole 500 mg tablet 500 mg PO BID Qty: 14 0RF cephalexin 500 mg capsule 500 mg PO QID 7 Days Qty: 28 0RF Follow-up/Referrals: Wilfredo Toribio MD [Physician] - 1 Week UNKNOWN,DOCTOR [Primary Care Provider] - Stand Alone Forms: Work/School Release IP
[2024-08-08 20:48] LABS: Bacterial Vaginosis POSITIVE (NEGATIVE)
== END 2024-08-07 17:40 | disposition home or self-care (01) ==
PROVIDERS: Emergency Provider Emergency Medicine
DX: O20.0 Threatened abortion (principal); Z3A.01 Less than 8 weeks gestation of pregnancy; O23.41 Unspecified infection of urinary tract in pregnancy, first trimester; N39.0 Urinary tract infection, site not specified; O98.311 Other infections with a predominantly sexual mode of transmission complicating pregnancy, first trimester; A59.01 Trichomonal vulvovaginitis
CPT/HCPCS: 36415; 76801; 76817; 80053; 81001; 81513; 84702; 85461; 86850; 86900; 86901; 87070; 87086; 87186; 87491; 87591; 87661; 90384; 96372; 99284; J2790

== ENCOUNTER 2024-08-15 09:53 | Outpatient (CLI) | payer OTHER, SELFPAY ==
--- NOTE | ~2024-08-15 | US_ITS ---
Pelvic ultrasound. Clinical History: First trimester , establish dates and viability. Technique: Realtime transabdominal and transvaginal scanning of the pelvis was performed. Color flow Doppler and Doppler spectral analysis were performed. Findings: The uterus is anteverted, and contains an intrauterine gestation. Walters-rump length of 1.2 cm corresponds to an estimated gestational age of 7 weeks 3 days. Small subchorionic hemorrhage measu res 2.1 x 1.0 x 0.8 cm. heart rate is 150 bpm. The right ovary measures 2.7 x 1.9 x 1.7 cm. No significant right ovarian or adnexal mass is seen. The left ovary measures 3.7 x 2.3 cm. Left ovarian corpus luteal cyst is seen. There is no evidence of free fluid in the cul de sac. Impression: Live intrauterine gestation, with estimated gestational age is 7 weeks 3 days. heart rate is 15 0 bpm. Sonographic HALEY is 04/01/2025. Subchorionic hemorrhage, as detailed above. Reviewed, dictated and finalized at location . Impression: Live intrauterine gestation, with estimated gestational age is 7 weeks 3 days. heart rate is 150 bpm. Sonographic HALEY is 04/01/2025. Subchorionic hemorrhage, as detailed above.
--- OUTSIDE RECORDS SUMMARY | 2024-08-15 10:47 | XMS_ITS | Clinical Summary ---
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
--- OUTSIDE RECORDS SUMMARY | 2024-08-15 10:47 | XMS_ITS | Clinical Summary ---
Author Organization [facility] Address [address] [place] [address] Care Team Providers Care Online Marketing Coordinator Name Role Phone Trell Russell MD Primary Care Provider Source Comments [facility],non-owned Affiliates and Associated Physician Practices is amultiple site organization consisting of ambulatory clinics and hospital sitesin [place], [place], [place] and [place]. This disclosure is being madepursuant to the Care Everywhere program and may not contain all information available regarding this patient. 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 GLYCERIN Gender Identity Not on file Sexual Orientation Not on file Last Filed Vital Signs Vital Sign Reading Time Taken Comments Blood Pressure 123/74 02/07/2023 10:16 PM SUPERVISOR GLYCERIN Pulse 75 02/07/2023 10:16 PM SUPERVISOR GLYCERIN Temperature 36.7 C (98.1 F) 02/07/2023 10:16 PM SUPERVISOR GLYCERIN Respiratory Rate 17 02/07/2023 10:16 PM SUPERVISOR GLYCERIN Oxygen Saturation 100% 02/07/2023 10:16 PM SUPERVISOR GLYCERIN Inhaled Oxygen Concentration - - Weight 59 kg (130 lb) 02/07/2023 10:16 PM SUPERVISOR GLYCERIN Height 170.2 cm (5' 7) 02/07/2023 10:16 PM SUPERVISOR GLYCERIN Body Mass Index 20.36 02/07/2023 10:16 PM SUPERVISOR GLYCERIN Plan of Treatment Health Maintenance Due Date Last Done Comments PAP SMEAR 2001 HIV SCREENING 2016 HPV VACCINE (1 - 3-dose series) 2016 CHLAMYDIA/GONORRHEA SCREENING 2017 MENINGOCOCCAL (Group B) VACC INE SHARED DECISION-MAKING (1 of 2 - Standard) 2017 DTAP/TDAP/TD VACCINES (1 - Tdap) 2020 HEPATITIS B VACCINE (1 of 3 - 19+ 3-dose series) 2020 COVID-19 VACCINE (1 - 2023-2 5 season) [...] patient's age to complete this topic Insurance [facility] [place] [address] Care Teams Online Marketing Coordinator Relationship Specialty Start Date End Date Trell Russell MD [address] [place] [address] PCP - General 07/07/21
--- OUTSIDE RECORDS SUMMARY | 2024-08-15 10:47 | XMS_ITS | Referral Summary ---
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 Gender Identity Not on file Sexual Orientation [...] Plan of Treatment Not on file Insurance [facility] H[facility]/PPO Address: [address] [address] [place] [address] [facility] HMO [facility] H[facility]/PPO Address: [address] [place] [address] [facility] CHO[facility] H[facility]/PPO Address: [address] [place] [address] Care Teams Ballaster Relationship Specialty Start Date End Date No, Physician PCP - General 09/18/23
== END 2024-08-15 09:54 | disposition home or self-care (01) ==
LOC: ANHIMG 09:56
PROVIDERS: Visit Provider Obstetrics & Gynecology
DX: Z34.90 Encounter for supervision of normal pregnancy, unspecified, unspecified trimester (principal)
CPT/HCPCS: 76801; 76817

== ENCOUNTER 2024-09-20 12:22 | Outpatient (CLI) | payer OTHER, SELFPAY ==
--- OUTSIDE RECORDS SUMMARY | 2024-09-20 12:25 | XMS_ITS | Clinical Summary ---
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 Gender Identity Not on file Sexual Orientation [...] Regular Well Visit/Exam 18-64 2019 Influenza Vaccine (#1) 2024 DTaP/Tdap/Td Vaccine (8 - Td or Tdap) 10/23/2032 10/23/2022, 09/20/2012, 06/15/2006, Additional history exists Hepatitis B Screening Completed 04/06/2002 , 2001, 2001 Pneumococcal vaccine <65 Completed 003, 2001, 2001, Additional history exists Varicella Vaccines Completed 09/08/2011, 07/03/2002 HPV Vaccines Completed 11/07/2015, 09/20/2012 Meningococcal B Vaccine Completed 07/15/2018, 06/14 Insurance [facility] PLUS [facility] H[facility]PPO Address: [facility] [address] [place] [address] [employer] [facility] HMO [facility] CHOICE PLUS [facility] H[facility]/PPO Address: [address] [address] [place] [address] [facility] CHO[facility] PLUS [facility] H[facility]/PPO Address: [address] [address] [place] [address] Care Teams Fire Control System Installer Relationship Specialty Start Date End Date No, Physician PCP - General 09/18/23
--- OUTSIDE RECORDS SUMMARY | 2024-09-20 12:25 | XMS_ITS | Clinical Summary ---
Author Organization [facility] Address [address] [place] [address] Care Team Providers Care Palletiser Operator Name Role Phone Trell Russell MD Primary Care Provider [phone] Source Comments [facility],non-owned Affiliates and Associated Physician Practices is amultiple site organization consisting of ambulatory clinics and hospital sitesin [place], [place], [place] and [place]. This disclosure is being madepursuant to the Care Everywhere program and may not contain all information available regarding this patient. 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 Gender Identity Not on file Sexual Orientation Not on file Last Filed Vital Signs Vital Sign Reading Time Taken Comments Blood Pressure 123/74 02/07/2023 10:16 PM INTEGRATION CONSULTANT Pulse 75 02/07/2023 10:16 PM INTEGRATION CONSULTANT Temperature 36.7 C (98.1 F) 02/07/2023 10:16 PM INTEGRATION CONSULTANT Respiratory Rate 17 02/07/2023 10:16 PM INTEGRATION CONSULTANT Oxygen Saturation 100% 02/07/2023 10:16 PM INTEGRATION CONSULTANT Inhaled Oxygen Concentration - - Weight 59 kg (130 lb) 02/07/2023 10:16 PM INTEGRATION CONSULTANT Height 170.2 cm (5' 7) 02/07/2023 10:16 PM INTEGRATION CONSULTANT Body Mass Index 20.36 02/07/2023 10:16 PM INTEGRATION CONSULTANT Plan of Treatment Health Maintenance Due Date Last Done Comments HIV SCREENING 2016 HPV VACCINE (1 - 3-dose series) 2016 CHLAMYDIA/GONORRHEA SCREENING 2017 MENINGOCOCCAL (Group B) VACC INE SHARED DECISION-MAKING (1 of 2 - Standard) 2017 DTAP/TDAP/TD VACCINES (1 - Tdap) 2020 HEPATITIS B VACCINE (1 of 3 - 19+ 3-dose series) 2020 PAP SMEAR 2022 COVID-19 VACCINE (1 - 2023-2 5 season) 2023 DEPRESSION SCREENING 03/08/2024 INFLUENZA VACCINE (#1) 2024 ZOSTER VACCINE (1 of 2) 2051 HEPATITIS C SCREENING Completed 06/20/2022 HIB VACCINE Aged Out No longer eligi ble based on patient's age to complete this topic MENINGOCOCCAL GROUPS A/C/Y/W VACCINE Aged Out No longer eligible b ased on patient's age to complete this topic PNEUMOCOCCAL VACCINE Aged Out No long er eligible based on patient's age to complete this topic Insurance [facility] [place] [place] [address] Care Teams Palletiser Operator Relationship Specialty Start Date End Date Trell Russell MD [address] [place] [address] PCP - General 07/07/21
--- OUTSIDE RECORDS SUMMARY | 2024-09-20 12:25 | XMS_ITS | Clinical Summary ---
Author Organization [facility] Address [address] [place] [address] Care Team Providers Care Hoop Driving Machine Operator Helper Name Role Phone None, Provider MD Primary Care Provider Unavaila ble Allergies Active Allergy Reactions Criticality Noted Date Comments Coconut (Cocos Nucifera) Unknown 11/03/2023 Medications metoclopramide 10 MG tablet Take 1 tablet (10 mg total) by mouth every 6 (six) hours as needed (NAUSEA). 20 tablet 1 Active HYDROcodone-acetami nophen (NORCO) 5-325 MG tabletIndications:A cute Pain < 7 Day Supply Take 1 tablet by mouth every 6 (six) hours as needed for Pain. Indications : Acute Pain < 7 Day Supply 20 tablet 3 Active ondansetron (ZOFRAN-ODT) 4 MG disintegrating tablet Take 1 tablet (4 mg total) by mouth every 8 (eight) hours as needed. 20 tablet 4 Active Active Problems Problem Noted Date Diagnosed Date ([facility]) 06/21/2022 Miscarriage ([facility]) 06/20/2022 Sepsis ([facility]) 07/27/2020 Severe sepsis ([facility]) 07/27/2020 Immunizations Immunization Administration Dates Next Due Tdap ([facility]) 10/23/2022 Social History Tobacco Use Types Packs/Day Years Used Date Smoking Tobacco: Never Smokeless Tobacco: Never Tobacco Cessation:Counseling Given: Not Answered Alcohol Use Standard Drinks/Week Comments No 0 (1 standard drink = 0.6 oz pur e alcohol) AUDIT-C Answer Date Recorded Frequency of Alcohol Consumption Never 11/10/2018 Average Number of Drinks Not on file 019 Frequency of Binge Drinking Not on file 07/2018 Comments Unknown Sex and Gender Information Value Date Recorded Sex Assigned at Female 05/29/2024 11:06 PM CDT Legal Sex Female 12:59 AM CDT Gender Identity Not on file Sexual Orientation Not on file Last Filed Vital Signs Vital Sign Reading Time Taken Comments Blood Pressure 107/58 05/30/2024 1:09 AM CDT Pulse 70 05/30/2024 1:09 AM CDT Temperature 36.9 C (98.4 F) 05/29/2024 11:07 PM CDT Respiratory Rate 16 05/30/2024 1:09 AM CDT Oxygen Saturation 100% 05/30/2024 1:09 AM CDT Inhaled Oxygen Concentration - - Weight 76 kg (167 lb 8.8 oz) 05/29/2024 11:09 PM CDT Height 170 cm (5' 6.93) 05/29/2024 11:07 PM CDT Body Mass Index 26.3 05/29/2024 11:07 PM CDT Plan of Treatment Health Maintenance Due Date Last Done Comments Cervical Cancer Screening Pa p Smear (Age 21 to 29) Every 3 Years 2001 Cervical Cancer Screening 2001 Annual Physical 2004 Hepatitis B Vaccines (1 of 3 - 19+ 3-dose series) 2020 Chlamydia Screening Females ages 16-24 06/21/2023 06/20/2022 COVID-19 Vaccine (1 - 2023-2 5 season) 2023 DTaP, Tdap and Td Vaccines ( 4 - Td or Tdap) 10/23/2032 10/23/2022, 2001, 2001 HPV Vaccines Completed 11/07/2015, 09/20/2012 Meningococcal Vaccine Completed 06/14/2018 Meningococcal B Vaccine Completed 07/16/19 19, 06/14/2018 Hepatitis C Completed 06/20/2022 Pneumococcal Vaccine: Pediatrics (0 to 5 Years) and At-Risk Patients (6 to 49 Years) Aged Out No longer eligible b ased on patient's age to complete this topic RSV Immunizations Under 20 Months Aged Out No longer eligible b ased on patient's age to complete this topic Goals Goal Patient Goal Type Associated Problems Recent Progress Patient-Stated? Author Patient will return to prior living situation and remain independent in ADLs upon discharge from hospital General Jocelyne Van RN Procedures Procedure Name Priority Date/Time Associated Diagnosis Comments CHLAMYDIA GC RNA Routine 06/20/2022 5:30 PM CDT Miscarriage (HHS/HCC) HEPATITIS PANEL,ACUTE Routine 06/20/2022 2:40 PM CDT Miscarriage (HHS/HCC) from Last 3 Months or Most Recently Relevant to Health Maintenance Results * (ABNORMAL) CHLAMYDIA GC RNA (06/20/2022 5:30 PM CDT) SPEC DESCRIPTION UNKNOWN 06/21/19 5:53 PM CDT [facility] CHLAMYDIA RNA TMA POSITIVE(A) NEGATIVE 2022 6:31 PM CDT [facility] Comment:PERFORMED BY NUCLEIC ACID AMPLIFICATION N.GONORRHOEAE RNA TMA POSITIVE(A) NEGATIVE 06/23/2022 6:31 PM CDT [facility] Comment:PERFORMED BY NUCLEIC ACID AMPLIFICATION URINE SPECIMEN / Unknown 06/20/2022 5:30 PM CDT us Kiana Isaacs MD MICROBIOLOGY - GENERAL ORDERABL ES Final Result [facility] [address] [place] [address], [place] [phone] [facility] [address] [place] [address], [place] [phone] * HEPATITIS PANEL,ACUTE (06/20/2022 2:40 PM CDT) HEPATITIS B SURFACE AG NON-REACTI VE NON-REACTI VE 06/20/2022 5:55 PM CDT [facility] HEP B CORE IGM NON-REACTI VE NON-REACTI VE 06/20/2022 5:56 PM CDT [facility] HAV IGM NON-REACTI VE NON-REACTI VE 06/20/2022 5:56 PM CDT [facility] HEPATITIS C AB NON-REACTI VE NON-REACTI VE 06/20/2022 5:56 PM CDT [facility] 06/20/2022 2:40 PM CDT us Kiana Isaacs MD LABORATORY Final Result [facility] [address] [place] [address], from Last 3 Months or Most Recently Relevant to Health Maintenance Insurance [facility] Advance Directives * Full Code (Latest Code Status on File) Date Activated Date Inactivated Comments 07/27/2020 6:32 PM 07/29/2020 2:15 PM Care Teams Hoop Driving Machine Operator Helper Relationship Specialty Start Date End Date None, Provider, MD PCP - General UNKNOWN PHYSICIAN SPECIALTY 10/02/23
--- OUTSIDE RECORDS SUMMARY | 2024-09-20 12:25 | XMS_ITS | Referral Summary ---
Author Organization 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
[2024-09-20 12:59] LABS: Hematocrit 36.7 % (37.0-47.0); Hemoglobin 12.1 g/dL (12.0-15.0); Immature Granulocyte Percent A 0.4 % (0-0.5); Lymphocytes Absolute Auto 1.48 K/mm3 (0.9-3.2); Mean Corpuscular HGB Conc 33.0 g/dl (32-36); Mean Corpuscular Hemoglobin 28.7 pg (26-34); Mean Corpuscular Volume 87.2 fl (80-100); Nucleated Red Blood Cells Absolute Auto 0.000 K/mm3 (0.0-0.012); Nucleated Red Blood Cells Perc 0.0 % (0.0-0.2); Platelet Count Result 292 k/mm3 (150-375); Red Blood Count 4.21 M/mm3 (4.2-5.4); White Blood Count 7.5 K/mm3 (4.5-10.0)
[2024-09-20 13:49] LABS: Hepatitis B Surface Antigen Negative (Negative)
[2024-09-20 13:58] LABS: HIV 1/2 Ab P24 Ag Result Negative (Negative)
[2024-09-20 14:03] LABS: Beta HCG Quantitative 145550.00 mIU/ML
[2024-09-20 14:08] LABS: Syphilis IgG/IgM Antibody Reactive (Nonreactive)
[2024-09-21 08:08] LABS: Cytomegalovirus (CMV) Ab, IgG 1.20 U/mL (0.00-0.59); Cytomegalovirus (CMV) Ab, IgM <30.0 AU/mL (0.0-29.9)
[2024-09-21 16:08] LABS: Varicella-Zoster Ab, IgG Reactive (Non Reactive); Varicella-Zoster Ab, IgM <0.91 index (0.00-0.90)
[2024-09-26 08:08] LABS: RPR Reactive (Non Reactive); RPR Reflex YES YES; RPR, Quant YES YES
[2024-09-26 14:08] LABS: Parvovirus B19, IgG 0.2 index (0.0-0.8); Parvovirus B19, IgM 0.2 index (0.0-0.8)
== END 2024-09-20 12:23 | disposition home or self-care (01) ==
LOC: ANHLAB 12:24
PROVIDERS: PCP Obstetrics & Gynecology; Visit Provider Obstetrics & Gynecology
DX: N91.2 Amenorrhea, unspecified (principal); Z20.6 Contact with and (suspected) exposure to human immunodeficiency virus [HIV]
CPT/HCPCS: 36415; 84702; 85025; 86592; 86593; 86644; 86645; 86703; 86747; 86762; 86780; 86787; 86850; 86880; 86900; 86901; 86902; 87086; 87340; G0432

== ENCOUNTER 2024-10-20 09:51 | Emergency (ER) | payer OTHER, SELFPAY ==
--- NOTE | 2024-10-20 09:54 | ED_ITS ---
HPI - URI/Sore Throat General Chief Complaint: Upper Respiratory Infection Stated Complaint: ,Sinus Time Seen by Provider: 10/20/24 10:32 Source: patient and RN notes reviewed Mode of arrival: ambulatory Limitations: no limitations History of Present Illness HPI Narrative: 24-year-old female who is 4 months presents with concern for 1 day history of nasal congestion, drainage, sore throat, cough, body aches, chills, headache, upset stomach and diarrhea. She has taken Tylenol. She was exposed to COVID. MD elicited complaint: cough and sore throat Related Data Home Medications ?Medication ?Instructions ?Recorded ?Confirmed ?Last Taken ?Type docosahexaenoic acid 200 mg mg PO 09/19/24 10/16/24 Unknown History capsule ( DHA) Allergies Allergy/AdvReac Type Severity Reaction Status Date / Time coconut AdvReac Intermediate Rash Verified 10/20/24 09:55 Review of Systems Review of Systems: CONSTITUTIONAL: Reports malaise, chills EYES: Denies visual changes, redness, or discharge. ENT: Reports rhinorrhea, congestion, and sore throat. CARDIOVASCULAR: Denies chest pain, palpitations, or edema. RESPIRATORY: Reports cough. Denies dyspnea. GASTROINTESTINAL: Denies abdominal pain, vomiting. Reports nausea diarrhea SKIN: Denies rash or itching. MUSCULOSKELETAL: Reports myalgia. NEUROLOGIC: Reports headache. 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 Surgical History Surgical History History of appendectomy Family History Family History Father Hypertension Smoker Grandparent Diabetes mellitus Alzheimer disease Chronic obstructive pulmonary disease Social History Social History Smoking status: Never smoker Second hand tobacco smoke exposure: No Alcohol intake: never Substance use: never Substance use type: does not use Do You Feel Safe in your Home?: Yes Lack of Transportation: No Lack of Food: Never True Current Housing: I Have Housing Concerned About Future Housing: No Difficulty Paying Gas/Electric Bills: No Difficulty Paying for Meds: No Currently Unemployed: YES Education: High School Diploma/GED Difficulty w/ Childcare or Family Care: No Living arrangements: other Additional living arrangements comments: single Occupation/Education: occupation Additional occupation/education comments: [employer] Gender identity (if verbalized by the patient): Female Sexual Orientation (if Verbalized by the Patient): Straight or Heterosexual Spiritual care concerns: No Comments At time of signature, agree with nursing past medical, surgical, social and f amily history. There is no relevant family history pertinent to the presenting complaint Exam Narrative: GENERAL: Well-appearing, well-nourished, and in no acute distress. HEAD: Normocephalic EYES: PERRLA, conjunctivae clear ENT: Nares clear. Mucous membranes moist. TM pearly madrigal with sharp light reflex bilaterally; no tragal tenderness. Oropharynx not erythematous without lesions. Tonsils not enlarged and without exudate, no drooling, no hoarseness, no trismus, uvula midline. NECK: Supple. No lymphadenopathy CHEST: Clear to auscultation, breath sounds equal. No wheezing, rhonchi, rales, or stridor. No respiratory distress, speaks in full sentences. HEART: Regular rate and rhythm. No murmur heard. SKIN: Warm, dry, no rash. NEURO: Alert and oriented x3. PSYCH: Normal mood and affect Course Course Emergency Course: Patient is aware of diagnosis, understands and agrees to treatment plan. Anticipatory guidance given. Patient agrees to follow-up as directed and is aware of reasons to seek care at the emergency department. Portions of this record may have been created with voice recognition software Level of Care: Express Care Visit Vital Signs Vital signs: Reviewed. MDM - URI/Sore Throat MDM Narrative Medical decision making narrative: Differential diagnosis considered: Morley virus, strep pharyngitis, allergic rhinitis, upper respiratory tract infection, sinusitis, rhinosinusitis, nasopharyngitis. viral pharyngitis, otitis media, otitis externa, pneumonia, bronchitis, viral cough syndrome, viral syndrome, and influenza. Exam findings show no acute concerns or changes; patient is non-toxic appearing and is in no distress. Patient is appropriate for outpatient treatment and follow-up. Lab Data Attestation: I reviewed the patient's lab results. Critical Care Time Critical Care Time Critical Care Time: No Discharge Plan Discharge Clinical Impression: Upper respiratory infection Patient Disposition: Home Condition: Stable Instructions: Upper Respiratory Infection (ED) Additional Instructions: Your rapid COVID and flu tests are negative Your rapid strep swab was negative today at [facility]. A throat culture will be sent to the laboratory for further testing. If the test is positive, you will receive a phone call within 48 hours and an appropriate antibiotic will be initiated at that time. Your symptoms are likely due to a viral illness, which is not treated with antibiotics. Viral symptoms can be present for up to a few weeks. -Take Tylenol per package directions for fever or pain. -Antihistamine medication such as Benadryl at night and Zyrtec during the day can help improve symptoms. -Eat and drink things that are easy to swallow, like tea or soup, or popsicles to suck on. -Oral rinses such as: Salt water gargles and/or may use topical anesthetic (eg. Chloraseptic spray) or lozenges to relieve dryness or throat pain). -Frequent hand washing or hand lottery office manager is one of the best ways to prevent spread of infection. -Follow up with primary care provider in 2-3 days if condition is not improving; or seek ER visit if you have trouble breathing, cannot drink enough fluids, have muffled voice, difficulty opening your mouth, or severe swelling. Patient Language: Spanish Prescriptions: No Action DHA 200 mg capsule PO ondansetron 4 mg tablet,disintegrating 4 mg PO Q6H PRN (Reason: nausea and vomiting) Qty: 30 2RF Follow-up/Referrals: Wilfredo Toribio MD [Primary Care Provider] - Stand Alone Forms: Work/School Release IP Time of Disposition: 10:39
[2024-10-20 10:04] VITALS: BP 100/63; PULSE 81; RESP 18; TEMP 36.7; O2SAT 100
[2024-10-20 10:31] LABS: EDCOVIDSCREEN Negative (Negative); EDINFLUASCREEN Negative (Negative); EDINFLUBSCREEN Negative (Negative); EDSTREPNEGPOS1 Negative (Negative)
== END 2024-10-20 10:50 | disposition home or self-care (01) ==
PROVIDERS: Emergency Provider Nurse Practitioner; PCP Obstetrics & Gynecology
DX: O99.519 Diseases of the respiratory system complicating pregnancy, unspecified trimester (principal); J06.9 Acute upper respiratory infection, unspecified; Z3A.00 Weeks of gestation of pregnancy not specified; Z20.822 Contact with and (suspected) exposure to COVID-19
CPT/HCPCS: 87081; 87426; 87804; 87880; 99213; G0463

== ENCOUNTER 2024-12-29 18:22 | Emergency (ER) | payer OTHER, SELFPAY ==
[2024-12-29 18:34] VITALS: BP 105/54; PULSE 125; RESP 18; TEMP 36.8; O2SAT 100
--- NOTE | 2024-12-29 18:41 | ED_ITS ---
HPI - URI/Sore Throat General Chief Complaint: Upper Respiratory Infection Stated Complaint: sore in private area/cough/body aches/ear pain Time Seen by Provider: 12/29/24 18:25 Source: patient Mode of arrival: ambulatory Limitations: no limitations History of Present Illness HPI Narrative: Peggy is a 24-year-old female patient presenting to the clinic today with complaints of cough, sinus congestion, sinus headache, body aches, ear pain, and a sore in her private area. She reports the URI symptoms have been going on for approximately 1 week and the sore in her private area started 2 days ago. She has had a history of syphilis in the past. She is currently 27 weeks . Last intercourse was approximately 2 weeks ago-states she found out that her was cheating on her. Denies any pelvic pain. No history of genital herpes. Related Data Home Medications ?Medication ?Instructions ?Recorded ?Confirmed ?Last Taken ?Type docosahexaenoic acid 200 mg mg PO 09/19/24 12/11/24 Un known History capsule ( DHA) Allergies Allergy/AdvReac Type Severity Reaction Status Date / Time coconut AdvReac Intermediate Rash Verified 12/29/24 18:57 Review of Systems Review of Systems: Pertinent positives per HPI. Patient denies any fever, chills, rash, headache, visual changes, dizziness, cough, shortness of breath, chest pain, palpitations, nausea, vomiting, diarrhea, constipation, abdominal pain, or any urinary issues. [facility] Past Medical History Medical History 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 Surgical History Surgical History History of appendectomy Family History Family History Father Hypertension Smoker Grandparent Diabetes mellitus Alzheimer disease Chronic obstructive pulmonary disease Social History Social History Smoking status: Never smoker Second hand tobacco smoke exposure: No Alcohol intake: never Substance use: never Substance use type: does not use Do You Feel Safe in your Home?: Yes Lack of Transportation: No Lack of Food: Never True Current Housing: I Have Housing Concerned About Future Housing: No Difficulty Paying Gas/Electric Bills: No Difficulty Paying for Meds: No Currently Unemployed: YES Education: High School Diploma/GED Difficulty w/ Childcare or Family Care: No Living arrangements: other Additional living arrangements comments: single Occupation/Education: occupation Additional occupation/education comments: [employer] Gender identity (if verbalized by the patient): Female Sexual Orientation (if Verbalized by the Patient): Straight or Heterosexual Spiritual care concerns: No Comments At the time of my signature, I reviewed and agree with the nursing past medical, surgical, social, and family history. There is no relevant family history pertinent to the patient complaint. Exam Narrative: General: Well-developed, well nourished, in no apparent distress Head: Normocephalic, atraumatic Eyes: Pupils equally round and reactive to light bilaterally, EOM intact, sclera and conjunctive clear, no discharge, lids normal Ears: TMs intact and congested, ear canals clear, no drainage, grossly hearing normal. Nose: Nares patent, yellow nasal discharge, moderate inflammation, maxillary sinus tenderness. Mouth: Oral pharynx without lesions or masses, good dentition, MMM. Neck: Supple, trachea midline, no enlargement of anterior or posterior cervical nodes, no thyroid masses or goiter palpable. Cardio: Regular rate and rhythm, s1 and s2 normal, no murmur appreciated. Resp: Clear to auscultation bilaterally, no rhonchi, rales, wheezing or rubs Abdomen: Soft, pliable, bowel sounds present in all quadrants, non-tender to palpation, no CVAT tenderness. : Pelvic exam performed with (Selma WOOD) at bedside. Verbal consent obtained from patient. Normal external female genitalia with sore/lesion to the left labia majora Urinary meatus: patent without discharge, Vagina: No lesions, masses, white frothy malodorus vaginal discharge Cervix: pink without mass, lesions, or tenderness. Course Course Emergency Course: Portions of this record may have been created with voice recognition software. Level of Care: Express Care Visit Vital Signs Vital signs: Vital Signs Temperature 36.8 C 12/29/24 18:34 Pulse Rate 125 H 12/29/24 18:34 Respiratory Rate 18 12/29/24 18:34 Blood Pressure 105/54 L 12/29/24 18:34 Pulse Oximetry 100 12/29/24 18:34 Oxygen Delivery Room Air 12/29/24 18:34 Temperature 36.8 C 12/29/24 18:34 Pulse Rate 125 H 12/29/24 18:34 Respiratory Rate 18 12/29/24 18:34 Blood Pressure 105/54 L 12/29/24 18:34 Pulse Oximetry 100 12/29/24 18:34 Oxygen Delivery Room Air 12/29/24 18:34 Vital signs reviewed MDM - URI/Sore Throat MDM Narrative Medical decision making narrative: At the time of visit patient is resting comfortably on the exam table. Patient appears to be nontoxic. complaints of cough, sinus congestion, sinus headache, body aches, ear pain, and a sore in her private area. She reports the URI symptoms have been going on for approximately 1 week and the sore in her private area started 2 days ago. She has had a history of syphilis in the past. She is currently 27 weeks . Last intercourse was approximately 2 weeks ago- states she found out that her was cheating on her. Denies any pelvic pain. No history of genital herpes. On exam patient has bilateral TM congestion, postnasal drip, mild redness of oropharynx, yellow nasal drainage, moderate inflammation of the anterior turbinates, lung sounds are clear, heart rates regular rate and rhythm, abdomen soft and pliable, bowel sounds present all 4 quadrants, no tenderness to palpation, vaginal or/lesion to the left upper labia majora with tenderness to palpation without induration, white frothy odorous discharge in the pelvic vault. Orders for strep, COVID, influenza, gonorrhea, chlamydia, Trichomonas, HSV swabs were ordered. Labs: Strep test was performed and negative in the clinic today. COVID and influenza testing was negative in the clinic today. STI testing-chlamydia, gonorrhea, Trichomonas, and HSV swabs were sent to the lab Plan: Patient is a 27 week female. I suspect patient has sinusitis with a painful vaginal lesion to the left upper labia majora. Prescription for lidocaine gel was sent to the pharmacy to help alleviate pain as well as Augmentin to cover for a sinus infection. Will hold on any STI treatment until results come back. Follow-up with OBGYN next week as scheduled. Recommend further blood work to test for STIs. Supportive measures were discussed with the patient and they voiced understanding discharge instructions and agrees to treatment plan. Return precautions reviewed Differential Diagnosis Differential diagnosis: Likely upper respiratory infection, otitis media, sinusitis, viral infection, bronchitis, influenza, pharyngitis and other (Painful vaginal lesion, high risk for STIs, 27 weeks , COVID) Lab Data Labs: Lab Results 12/29/24 12/29/24 12/29/24 Range/Units 18:35 19:12 19:25 HSV I DNA PCR Pending HSV II DNA PCR Pending POC Influenza A Ag Negative (Negative) POC Influenza B Ag Negative (Negative) POC SARS CoV-2 Ag Negative (Negative) POC Grp A Strep Screen Negative (Negative) Discharge Plan Discharge Clinical Impression: Lesion of genitalia, At high risk for sexually transmitted infection Sinusitis Qualifiers: Sinusitis location: maxillary Chronicity: acute Recurrence: non-recurrent Qualified Code(s): J01.00 - Acute maxillary sinusitis, unspecified Patient Disposition: Home Condition: Stable Instructions: Antibiotic Form, Sexually Transmitted Diseases (ED), Safe Sex Practices (ED), Sinusitis (ED), Pelvic Pain in Women (ED) Additional Instructions: Sinusitis discharge instructions: Take prescription medications only as prescribed-Augmentin Increase fluids and stay well hydrated May take Tylenol or motrin as directed on bottle for pain/fever May use Flonase 1 spray in each nare daily May take OTC antihistamines such as Zyrtec or Claritin daily as directed on bottle May apply Vicks vapor rub to chest to open sinuses Sinus rinses for congestion Cepacol spray, cough drops, throat lozenges, warm tea with honey/lemon, gargle salt water to soothe throat BRAT diet for diarrhea Clear liquids x 24 hours then advance as tolerated for nausea/vomiting Go to the ED if you develop a worsening in your condition- high fever not controlled by Tylenol or Motrin, dehydration, weakness, lethargy, shortness of breath, or chest pain. Follow up with your PCP in 3-5 days if symptoms persist. Genital lesion discharge instruction: We have tested/treated you for STIs in the clinic today. We have tested you for Trichomonas, gonorrhea, and chlamydia. Herpes swab was also sent to the lab. Recommend having further blood testing- HIV, Syphilis,Hepatitis, and HSV testing Avoid any sexual activity- includes oral, anal, or vaginal intercourse until you get results back and have completed any additional recommended treatment regimens. We will contact you if testing is positive and make sure your treatment was appropriate for the type of STI. If symptoms worsen after treatment recommend reevaluation with your PCP, OBGYN, STI clinic Approved Medications for Patients Cold and Flu Symptoms --Tylenol (regular or extra Strength) Fever (call if over 101?)--Tylenol (regular or extra Strength) Nasal Drainage/Head Congestion--Chlor-Trimeton, Sudafed, Tavist,Tylenol Sinus Cough--Robitussin, Delsym, Mucinex Sore Throat--Chloraseptic, Cepacol lozenges Allergy Symptoms--Bendryl, Zyrtec, Zyrtec D, Claritin, Claritin D Nausea--Emetrol, Vitamin B6 Tablets, Berenice, Berenice Tea, Preggie Pops, B-Hugo Suckers Constipation--Milk of Magnesia, Metamucil, Fiberall, Konsyl, Colace (Docusate Sodium) Diarrhea--Imodium, Kaopectate, Follow BRAT diet: bananas, rice, applesauce, tea/toast Heartburn--Maalox, Mylanta, TUMS, Prilosec OTC, Zantac, Tagment, Prevacid, Pepcid Hemorrhoids--Tucks Pads, Anusol, Preparation H, warm sitz baths Patient Language: [place] Prescriptions: New amoxicillin-pot clavulanate 875-125 mg tablet 1 tablet PO Q12H 10 Days Qty: 20 0RF lidocaine 4 % gel 1 applic topical QID PRN (Reason: pain) 10 Days Qty: 30 0RF No Action DHA 200 mg capsule PO Follow-up/Referrals: UNKNOWN,DOCTOR [Primary Care Provider] Stand Alone Forms: Work/School Release IP Time of Disposition: 19:35 Quality NIHSS Nursing Documentation ED NIHSS nursing documentation: reviewed/agree
[2024-12-29 18:53] LABS: EDSTREPNEGPOS1 Negative (Negative)
[2024-12-29 19:13] LABS: EDCOVIDSCREEN Negative (Negative); EDINFLUASCREEN Negative (Negative); EDINFLUBSCREEN Negative (Negative)
[2024-12-30 18:58] LABS: Trichomonas Vag PCR NOT DETECTED (NOT DETECTE)
[2025-01-02 23:07] LABS: HSV-1 DNA Negative (Negative); HSV-2 DNA Positive (Negative)
== END 2024-12-29 19:48 | disposition home or self-care (01) ==
PROVIDERS: Emergency Provider Nurse Practitioner Family
DX: O99.512 Diseases of the respiratory system complicating pregnancy, second trimester (principal); J01.00 Acute maxillary sinusitis, unspecified; O99.891 Other specified diseases and conditions complicating pregnancy; N90.89 Other specified noninflammatory disorders of vulva and perineum; Z3A.27 27 weeks gestation of pregnancy; Z72.51 High risk heterosexual behavior; Z20.822 Contact with and (suspected) exposure to COVID-19
CPT/HCPCS: 86615; 87426; 87491; 87529; 87591; 87661; 87804; 87880; 99213; G0463

== ENCOUNTER 2025-01-08 10:59 | Outpatient (CLI) | payer OTHER, SELFPAY ==
[2025-01-08 12:24] LABS: Hematocrit 33.5 % (37.0-47.0); Hemoglobin 10.8 g/dL (12.0-15.0); Immature Granulocyte Percent A 0.6 % (0-0.5); Lymphocytes Absolute Auto 1.63 K/mm3 (0.9-3.2); Mean Corpuscular HGB Conc 32.2 g/dl (32-36); Mean Corpuscular Hemoglobin 28.7 pg (26-34); Mean Corpuscular Volume 89.1 fl (80-100); Nucleated Red Blood Cells Absolute Auto 0.000 K/mm3 (0.0-0.012); Nucleated Red Blood Cells Perc 0.0 % (0.0-0.2); Platelet Count Result 279 k/mm3 (150-375); Red Blood Count 3.76 M/mm3 (4.2-5.4); White Blood Count 9.5 K/mm3 (4.5-10.0)
--- OUTSIDE RECORDS SUMMARY | 2025-01-08 12:28 | XMS_ITS | Clinical Summary ---
Author Organization [facility] Address [address] [place] [address] Care Team Providers Care Agricultural Extension Agent Name Role Phone Trell Russell MD Primary Care Provider Source Comments [facility] and [facility] Practices is amultiple site organization consisting of ambulatory clinics and hospital sitesin [place], [place], [place] and [place]. This disclosure is being madepursuant to the Care Everywhere program and may not contain all information available regarding this patient. Last updated 17.[facility] Allergies Active Allergy Reactions Criticality Noted Date Comments Coconut Flavor Rash Medium 10/31/2024 Medications * Be aware that medications may not be up to date on this document. Alwaysverify current medications with the patient. Vit-DSS-Fe Fum-FA ( vitamin with iron) tablet Take 1 (one) tablet by mouth once daily Active Active Problems Problem Noted Date Diagnosed Date Syphilis affecting 11/13/2024 with prior adverse outcome: midtrimester loss, possibly secondary to syphilis 11/13/2024 History of prior with [facility] 10/2024 Estimated Date of Delivery Comme nts Yes 04/01/2025 Based on Ultraso und Encounters Date Type Department Care Team Description 11/08/2024 2:22 PM CDT - 11/08/2024 11:59 PM CDT Hospital Encounter [facility] Care [address] [place] [id number] Ailyn Gillespie MD Discharge Disposition: Home or Self Care 11/08/2024 1:36 PM CDT - 11/08/2024 2:21 PM CDT Hospital Encounter [facility] [address] [place], [place] [id number] Ailyn Gillespie MD Discharge Disposition: Home or Self Care 11/08/2024 Travel from Last 3 Months Family History Medical History Relation Name Comments Hypertension Father Relation Name Status Comments Father Alive Mother Alive Social History Tobacco Use Types Packs/Day Years Used Date Smoking Tobacco: Never Smokeless Tobacco: Never Tobacco Cessation:Counseling Given: Not Answered Alcohol Use Standard Drinks/Week Comments Not Currently 0 (1 standard drink = 0.6 oz pur e alcohol) Estimated Date of Delivery Comme nts Yes 04/01/2025 Based on Ultraso und Sex and Gender Information Value Date Recorded Sex Assigned at Not on file Legal Sex Female 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 Gender Identity Not on file Sexual Orientation Not on file Last Filed Vital Signs Vital Sign Reading Time Taken Comments Blood Pressure 108/73 11/08/2024 2:57 PM CDT Pulse 96 11/08/2024 2:57 PM CDT Temperature 36.7 C (98.1 F) 02/07/2023 10:16 PM INSURANCE UNDERWRITER Respiratory Rate 17 02/07/2023 10:16 PM INSURANCE UNDERWRITER Oxygen Saturation 100% 02/07/2023 10:16 PM INSURANCE UNDERWRITER Inhaled Oxygen Concentration - - Weight 77.6 kg (171 lb) 11/08/2024 2:57 PM CDT Height 170.2 cm (5' 7) 11/08/2024 2:57 PM CDT Body Mass Index 26.78 11/08/2024 2:57 PM CDT Plan of Treatment Health Maintenance Due Date Last Done Comments HIV SCREENING 2016 HPV VACCINE (1 - 3-dose series) 2016 CHLAMYDIA/GONORRHEA SCREENING 2017 MENINGOCOCCAL (Group B) VACCINE SHARED DECISION-MAKING (1 of 2 - Standard) 2017 HEPATITIS C SCREENING 03/14/2019 DTAP/TDAP/TD VACCINES (1 - Tdap) 2020 HEPATITIS B VACCINE (1 of 3 - 19+ 3-dose series) 2020 PAP SMEAR 2022 DEPRESSION SCREENING 03/08/2024 COVID-19 VACCINE (2023-2 5 season) 2024 INFLUENZA VACCINE (#1) 2024 OB-ONE HOUR GLUCOSE 12/24/2024 OB-TDAP CURRENT 12/31/20242022, 09/20/2012 OB-RHOGAM INJECTION 01/07/2025 Respiratory Syncytial Virus (RSV) Vaccine Pt: or over 60 yrs (1 - Risk 1-dose series) 02/04/2025 ZOSTER VACCINE (1 of 2) 2051 HIB VACCINE Aged Out No longer eligi ble based on patient's age to complete this topic MENINGOCOCCAL GROUPS A/C/Y/W VACCINE Aged Out No longer eligible b ased on patient's age to complete this topic PNEUMOCOCCAL VACCINE Aged Out No long er eligible based on patient's age to complete this topic Procedures Procedure Name Priority Date/Time Associated Diagnosis Comments SONOGRAM - COMPLETE Routine 11/08/2024 2 :10 PM CDT Syphilis affecting in second trimester ([facility]) Positive RPR test 19 weeks gestation of ([facility]) Encounter for anatomic survey ([facility]) from Last 3 Months Results * Sonogram - Complete (11/08/2024 2:10 PM CDT) Linked Results Indication ======== anatomy evaluation History ====== OB History 3. Para 1 1. live 2020. Gest. age 38 w + 0 d. Weight 2,466 g. Sex of child: male. Details: Vaginal delivery 2. miscarriage 2022. Details: mid trimester, dx with syphilis Lab Tests Test Date Result Genetic screening Declined Maternal Assessment Physical Exam Height 173 cm, 5 ft 8 in. Weight 78 kg, 171 lb. Initial weight 78 kg, 172 lb. BMI 26.00 kg/m . Initial BMI 26.15 kg/m . Weight gain 0 kg, -1 lb Method ====== Transabdominal and transvaginal ultrasound. View: Sufficient ========= Etienne . Number of fetuses: 1 Dating ====== Date Details Gest. age HALEY Stated HALEY 19 w + 4 d 03/31/2025 U/S 11/08/2024 based upon AC, BPD, Femur, HC 19 w + 4 d 03/31/2025 Assigned dating based on stated HALEY, selected on 11/08/2024 19 w + 4 d 03/31/2025 General Evaluation Cardiac activity present. FHR 152 bpm. Presentation: breech Placenta: Placental site: anterior. No previa seen Umbilical cord: Cord vessels: 3 vessel cord. Insertion site: normal insertion Amniotic fluid: Amount of AF: normal. MVP 5.2 cm Biometry BPD 42.1 mm 18w 5d 18% Hadlock HC 161.9 mm 19w 0d 17% Hadlock Cerebellum tr 19.1 mm 26% [place] Nuchal fold 3.4 mm AC 152.5 mm 20w 3d 74% Hadlock Femur 32.2 mm 20w 0d 60% Hadlock Humerus 32.1 mm 20w 5d 89% Norm HC / AC 1.06 -/- 3% Hadlock Weight Calculation: EFW 331 g 73% Hadlock EFW (lb,oz) 0 lb 12 oz EFW by Hadlock ([id number]) Head / Face / Neck Biometry: CM 4.7 mm 44% Nicolaides appropriate Growth Overview Exam date GA BPD (mm) HC (mm) AC (mm) FL (mm) HL (mm) EFW (g) 11/08/2024 19w 4d 42.1 18% 161.9 17% 152.5 74% 32.2 60% 32.1 89% 331 73% Anatomy The following structures appear normal: Head / Neck Cranium. Lateral ventricles. Choroid plexus. Midline falx. Cavum septi pellucidi. Cerebellum. Cisterna magna. Thalami. Nuchal fold. Face Orbits. Heart / Thorax 4-chamber view. RVOT view. 3-vessel view. Situs. Interventricular septum. Great vessels. Right lung. Left lung. Diaphragm. Abdomen Cord insertion. Stomach. Kidneys. Bladder. Bowel. Genitals. Extremities / Skeleton Arms. Right hand. Legs. Feet. The following structures could not be adequately visualized: Face Lips. Profile. Nose. Nasal bone. Heart / Thorax LVOT view. 5-dureme-kqkysoy view. Aortic arch view. Bicaval view. Ductal arch view. Spine Cervical spine. Thoracic spine. Lumbar spine. Sacral spine. Extremities / Skeleton Left hand. Spine other: transverse spine suboptimal Maternal Structures Cervix reassuring Approach - Transvaginal: Cervical length 3.80 cm Right Ovary Not visualized Appearance: Adnexa appears normal Left Ovary Not visualized Appearance: Adnexa appears normal Impression ========= Single live intrauterine at 19w 4d The size is appropriate. The amniotic fluid volume is normal. The transvaginal cervical length is reassuring. No major malformations were seen within the limitations of ultrasound. Follow-up ======== Follow up ultrasound in 4 weeks for growth and to complete anatomic survey. See separate [facility] visit note. Coding ====== Diagnoses Z36.3: Encounter for screening for malformations Procedures 95744: US Preg Uterus >14 weeks 70508: US Preg Uterus Transvaginal [employer] PACS Anatomical Region Laterality Modality Other 11/08/2024 2:10 PM CDT Ragini Johnson MD [facility] ORDERABLES Edited Result - Final from Last 3 Months Insurance [facility] Care Teams Agricultural Extension Agent Relationship Specialty Start Date End Date Trell Russell MD [address] [place] [id number] PCP - General 07/07/21
[2025-01-08 12:46] LABS: Glucose 1 Hour PP 50gm Dose 91 mg/dL
[2025-01-08 13:21] LABS: Syphilis IgG/IgM Antibody Reactive (Nonreactive)
[2025-01-08 13:26] LABS: HIV 1/2 Ab P24 Ag Result Negative (Negative)
[2025-01-08] MEDS: RHO(D) IMMUNE GLOBULIN 300 MCG/2 ML SYRINGE IM (16:00)
[2025-01-09 12:08] LABS: RPR Reactive (Non Reactive); RPR, Quant. YES YES
[2025-01-11 07:09] LABS: RPR Reactive (Non Reactive); RPR Reflex YES YES; RPR, Quant YES YES
== END 2025-01-08 11:00 | disposition home or self-care (01) ==
LOC: ANHLAB 11:01
PROVIDERS: Visit Provider Obstetrics & Gynecology
DX: Z34.90 Encounter for supervision of normal pregnancy, unspecified, unspecified trimester (principal); Z3A.00 Weeks of gestation of pregnancy not specified
CPT/HCPCS: 36415; 82947; 85025; 85461; 86592; 86593; 86703; 86780; 86850; 86900; 86901; 90384; 96372; G0432; J2790

== ENCOUNTER 2025-01-20 09:42 | Emergency (ER) | payer OTHER, SELFPAY ==
[2025-01-20 09:49] VITALS: BP 107/63; PULSE 96; RESP 16; TEMP 36.5; O2SAT 99
--- NOTE | 2025-01-20 10:29 | ED.GENADULT ---
HPI - General Adult General Chief complaint: Extremity Problem,Nontraumatic Stated complaint: sharp leg pain, 29 weeks Time Seen by Provider: 01/20/25 10:09 Source: patient Mode of arrival: ambulatory Limitations: no limitations History of Present Illness HPI narrative: 24 years old white female came to the ED by private car complaining of soreness at the right groin area for the last 3 days. 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 Denies any fever, chills, nausea, vomiting, vaginal bleeding or discharge or urinary symptoms. Related Data Home Medications ?Medication ?Instructions ?Recorded ?Confirmed ?Last Taken ?Type docosahexaenoic acid 200 mg mg PO 09/19/24 01/08/25 Unknown History capsule ( DHA) Allergies Allergy/AdvReac Type Severity Reaction Status Date / Time coconut AdvReac Intermediate Rash Verified 01/08/25 14:55 Review of Systems Review of Systems: 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 Surgical History Surgical History History of appendectomy Family History Family History Father Hypertension Smoker Grandparent Diabetes mellitus Alzheimer disease Chronic obstructive pulmonary disease Social History Social History Smoking status: Never smoker Second hand tobacco smoke exposure: No Alcohol intake: never Substance use: never Substance use type: does not use Do You Feel Safe in your Home?: Yes Lack of Transportation: No Lack of Food: Never True Current Housing: I Have Housing Concerned About Future Housing: No Difficulty Paying Gas/Electric Bills: No Difficulty Paying for Meds: No Currently Unemployed: YES Education: High School Diploma/GED Difficulty w/ Childcare or Family Care: No Living arrangements: other Additional living arrangements comments: single Occupation/Education: occupation Additional occupation/education comments: [employer] Gender identity (if verbalized by the patient): Female Sexual Orientation (if Verbalized by the Patient): Straight or Heterosexual Spiritual care concerns: No Exam Narrative: General appearance: Well-developed, well-nourished Skin: Right groin area showing red moist skin consistent with candidiasis no open skin, no discharge Abdomen: Soft, nontender, no organomegaly, quiet bowel sounds Musculoskeletal: Normal range of motion, nontender back Neurologic: Alert and oriented ?3, RN OR LPN is normal as tested, no gross motor deficit Course Vital Signs Vital signs: Vital Signs Temperature 36.5 C 01/20/25 09:49 Pulse Rate 96 01/20/25 09:49 Respiratory Rate 16 01/20/25 09:49 Blood Pressure 107/63 01/20/25 09:49 Pulse Oximetry 99 01/20/25 09:49 Oxygen Delivery Room Air 01/20/25 09:49 Temperature 36.5 C 01/20/25 09:49 Pulse Rate 96 01/20/25 09:49 Respiratory Rate 16 01/20/25 09:49 Blood Pressure 107/63 01/20/25 09:49 Pulse Oximetry 99 01/20/25 09:49 Oxygen Delivery Room Air 01/20/25 09:49 Medical Decision Making Vital Signs Vital Signs: Vital Signs Temperature 36.5 C 01/20/25 09:49 Pulse Rate 96 01/20/25 09:49 Respiratory Rate 16 01/20/25 09:49 Blood Pressure 107/63 01/20/25 09:49 Pulse Oximetry 99 01/20/25 09:49 Oxygen Delivery Room Air 01/20/25 09:49 Temperature 36.5 C 01/20/25 09:49 Pulse Rate 96 01/20/25 09:49 Respiratory Rate 16 01/20/25 09:49 Blood Pressure 107/63 01/20/25 09:49 Pulse Oximetry 99 01/20/25 09:49 Oxygen Delivery Room Air 01/20/25 09:49 Critical Care Time Critical Care Time Critical Care Time: No Discharge Plan Discharge Clinical Impression: Candidiasis Patient Disposition: Home Condition: Stable Instructions: Skin Yeast Infection (ED) Additional Instructions: Return if symptoms are worsening , call your family physician for appointment, take Tylenol as as needed for aches and pain, continue home medications. Keep the skin dry and clean Patient Language: British Prescriptions: New ketoconazole-hydrocortisone 2-2.5 % cream 1 applic topical TID 14 Days Qty: 150 0RF No Action lidocaine 4 % gel 1 applic topical QID PRN (Reason: pain) 10 Days Qty: 30 0RF DHA 200 mg capsule PO Follow-up/Referrals: PHYSICIAN,INSTRUMENT PANEL ASSEMBLER [Primary Care Provider, Internal Medicine] Stand Alone Forms: Work/School Release IP
== END 2025-01-20 10:40 | disposition home or self-care (01) ==
PROVIDERS: Emergency Provider Emergency Medicine
DX: O98.813 Other maternal infectious and parasitic diseases complicating pregnancy, third trimester (principal); B37.2 Candidiasis of skin and nail; Z3A.29 29 weeks gestation of pregnancy
CPT/HCPCS: 99283

== ENCOUNTER 2025-01-26 13:04 | Emergency (ER) | payer OTHER, SELFPAY ==
--- NOTE | 2025-01-26 13:13 | ED_ITS ---
HPI - General Adult General Chief complaint: Unspecified Stated complaint: /Lower Pelvic/ Hips Pain Time Seen by Provider: 01/26/25 13:14 Source: patient, RN notes reviewed and old records reviewed Mode of arrival: ambulatory Limitations: no limitations History of Present Illness HPI narrative: 24-year-old female presents to the [facility] with bilateral leg pain. Patient states been going on for 2 weeks. States that she was at work and felt like her legs were about to give out. Did not fall. No abdominal trauma. Did not hit head. Patient had been evaluated by her OB on the , 4 days ago. Has an appointment on the with OB. Patient denies any abdominal pain. Requesting a work note for 4 days, Three days given, stressed the importance of following up with Ob were going to labor and delivery if symptoms get worse. Treatments prior to arrival: none Related Data Home Medications ?Medication ?Instructions ?Recorded ?Confirmed ?Last Taken ?Type docosahexaenoic acid 200 mg mg PO 09/19/24 01/22/25 Un known History capsule ( DHA) Allergies Allergy/AdvReac Type Severity Reaction Status Date / Time coconut AdvReac Intermediate Rash Verified 01/26/25 13:12 Review of Systems Review of Systems: All systems reviewed & are unremarkable except as noted in HPI and below Constitutional: Constitutional: Reports no additional constitutional complaints Cardiovascular: Cardiovascular: Reports no additional cardiovascular complaints, Denies chest pain and Denies dyspnea Respiratory: Respiratory: Reports no additional respiratory complaints, Denies chest congestion, Denies cough and Denies dyspnea Musculoskeletal: Musculoskeletal: Reports as per HPI Integumentary/Breasts: Skin/Breast: Reports system reviewed and no additional complaints, except as docu Neurologic: Reports system reviewed and no additional complaints, except as documented [facility] Past Medical History Medical History 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 Surgical History Surgical History History of appendectomy Family History Family History Father Hypertension Smoker Grandparent Diabetes mellitus Alzheimer disease Chronic obstructive pulmonary disease Social History Social History (Reviewed 01/26/25 @ 20:11 by MIKAYLA Washington Smoking status: Never smoker Second hand tobacco smoke exposure: No Alcohol intake: never Substance use: never Substance use type: does not use Do You Feel Safe in your Home?: Yes Lack of Transportation: No Lack of Food: Never True Current Housing: I Have Housing Concerned About Future Housing: No Difficulty Paying Gas/Electric Bills: No Difficulty Paying for Meds: No Currently Unemployed: YES Education: High School Diploma/GED Difficulty w/ Childcare or Family Care: No Living arrangements: other Additional living arrangements comments: single Occupation/Education: occupation Additional occupation/education comments: [employer] Gender identity (if verbalized by the patient): Female Sexual Orientation (if Verbalized by the Patient): Straight or Heterosexual Spiritual care concerns: No Comments At the time of my signature, I reviewed and agree with the nursing past medical, surgical, social, and family history. There is no relevant family history pertinent to the patient complaint. Exam Const: General: cooperative, healthy appearing, comfortable, no acute distress, well developed, alert and well nourished Nutritional Appearance: well nourished Orientation/consciousness: patient oriented x3 Limitations: no limitations HENMT: Head: normal to inspection Eyes: General: appearance normal, both eyes and all related structures Alignment and Position: alignment normal Neck: Neck: normal visual inspection, full ROM, no lymphadenopathy and no meningeal signs Chest: Chest palpation & inspection: normal inspection of the chest Resp: Effort & Inspection: normal respiratory effort and able to speak in complete sentences Auscultation: clear to auscultation bilaterally, no crackles, no rales, no rhonchi and no wheezes Cardio: Rate: regular rate Skin: General skin exam: normal color and no rashes or lesions noted Neuro: General: patient oriented x3, gait normal, moves all extremities and no meningeal signs Cognition (Neuro): normal cognition Speech: normal speech Gait exam (Neuro): Normal gait present Extrem: General: normal to inspection, full ROM, capillary refill normal and normal gait Psych: Appearance: grossly normal and well kempt Mental Status: mental status grossly normal Speech and movement: Normal speech and movement present and Clear speech present Affect: normal affect Attitude: cooperative Course Course Level of Care: Express Care Visit Vital Signs Vital signs: Vital Signs Temperature 97.7 F 01/26/25 13:14 Pulse Rate 83 01/26/25 13:14 Respiratory Rate 18 01/26/25 13:14 Blood Pressure 100/65 01/26/25 13:14 Pulse Oximetry 100 01/26/25 13:14 Oxygen Delivery Room Air 01/26/25 13:14 Temperature 97.7 F 01/26/25 13:14 Pulse Rate 83 01/26/25 13:14 Respiratory Rate 18 01/26/25 13:14 Blood Pressure 100/65 01/26/25 13:14 Pulse Oximetry 100 01/26/25 13:14 Oxygen Delivery Room Air 01/26/25 13:14 Reviewed Medical Decision Making MDM Narrative Medical decision making narrative: Patient sitting in exam room. Patient is nontoxic, vitals are stable. Patient presents with bilateral upper leg pain. Patient reports has been going on for at least 2 weeks. Has been evaluated by OB. Patient is . Discharge instructions reviewed with patient, as well as provided in writing per nursing staff. The instructions also include specific and strict return/GO TO THE ER as well as f/u information. All questions have been answered, and the patient deny any further questions with discharge and discharge plan. Some parts of this dictation were generated by voice recognition software and may contain typographical and/or grammatical inaccuracies. Differential Diagnosis Differential Diagnosis: sciatic, round ligament pain Medical Records Medical records reviewed: Yes I reviewed the external patient's medical records. Vital Signs Vital Signs: Vital Signs Temperature 97.7 F 01/26/25 13:14 Pulse Rate 83 01/26/25 13:14 Respiratory Rate 18 01/26/25 13:14 Blood Pressure 100/65 01/26/25 13:14 Pulse Oximetry 100 01/26/25 13:14 Oxygen Delivery Room Air 01/26/25 13:14 Temperature 97.7 F 01/26/25 13:14 Pulse Rate 83 01/26/25 13:14 Respiratory Rate 18 01/26/25 13:14 Blood Pressure 100/65 01/26/25 13:14 Pulse Oximetry 100 01/26/25 13:14 Oxygen Delivery Room Air 01/26/25 13:14 Reviewed Lab Data Lab results reviewed: Yes I reviewed the patient's lab results. Labs: Reviewed Critical Care Time Critical Care Time Critical Care Time: No Discharge Plan Discharge Clinical Impression: Bilateral leg pain, Patient Disposition: Home Condition: Stable Instructions: Antibiotic Form Additional Instructions: follow-up with OB as already scheduled if worsening or new symptoms arise please go directly to Labor and delivery Patient Language: Norwegian Prescriptions: No Action lidocaine 4 % gel 1 applic topical QID PRN (Reason: pain) 10 Days Qty: 30 0RF DHA 200 mg capsule PO ketoconazole-hydrocortisone 2-2.5 % cream 1 applic topical TID 14 Days Qty: 150 0RF Follow-up/Referrals: Wilfredo Toribio MD [Primary Care Provider, [employer] RECONNAISSANCE SPECIALIST] - 3 Days Stand Alone Forms: Work/School Release IP Time of Disposition: 13:21
[2025-01-26 13:14] VITALS: BP 100/65; PULSE 83; RESP 18; TEMP 36.5; O2SAT 100
== END 2025-01-26 13:24 | disposition home or self-care (01) ==
PROVIDERS: Emergency Provider Nurse Practitioner; PCP Obstetrics & Gynecology
DX: O99.891 Other specified diseases and conditions complicating pregnancy (principal); M79.652 Pain in left thigh; M79.651 Pain in right thigh; Z3A.00 Weeks of gestation of pregnancy not specified
CPT/HCPCS: 99212; G0463

== ENCOUNTER 2025-02-11 21:52 | Outpatient (CLI) | payer OTHER, SELFPAY ==
[2025-02-11] VITALS (10 sets, daily range): BP systolic 101–108; BP diastolic 63–71; PULSE 70–83; O2SAT 100
--- OUTSIDE RECORDS SUMMARY | 2025-02-11 21:50 | XMS_ITS | Clinical Summary ---
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
--- OUTSIDE RECORDS SUMMARY | 2025-02-11 21:50 | XMS_ITS | Clinical Summary ---
Author Organization [facility] Address [address] [place] [address] Care Team Providers Care Solution Manager Name Role Phone None, Provider MD Primary Care Provider Unavaila ble Allergies Active Allergy Reactions Criticality Noted Date Comments Coconut (Cocos Nucifera) Unknown 11/03/2023 Medications No known medications Active Problems Problem Noted Date Diagnosed Date 06/21/2022 Miscarriage 06/20/2022 Sepsis 07/27/2020 Severe sepsis 07/27/2020 Estimated Date of Delivery Comme nts Yes 04/01/2025 Based on Other B asis Encounters Date Type Department Care Team Description 12/18/2024 12:09 PM CDT - 12/18/2024 1:51 PM CDT Emergency [facility] [place] [address] Rajeev Mirza MD Shoulder Pain Discharge Disposition: Home or Self Care (Routine Discharge) 12/18/2024 Travel 11/29/2024 10:55 AM CDT - 11/29/2024 11:52 AM CDT Emergency [facility] [place] [address] Darby Cline MD (Cramping that started approx 1hr ago ) Discharge Disposition: Home or Self Care (Routine Discharge) 11/29/2024 Travel from Last 3 Months Immunizations Immunization Administration Dates Next Due Tdap [...] of Binge Drinking Not on file 07/2018 Estimated Date of Delivery Comme nts Yes 04/01/2025 Based on Other B asis Sex and Gender Information Value Date Recorded Sex Assigned at Female 05/29/2024 11:06 PM CDT Legal Sex Female 12:59 AM CDT Gender Identity Not on file Sexual Orientation Not on file Last Filed Vital Signs Vital Sign Reading Time Taken Comments Blood Pressure 107/73 12/18/2024 1:40 PM CDT Pulse 90 12/18/2024 1:40 PM CDT Temperature 36.4 C (97.5 F) 12/18/2024 11:54 AM CDT Respiratory Rate 18 12/18/2024 1:40 PM CDT Oxygen Saturation 100% 12/18/2024 1:40 PM CDT Inhaled Oxygen Concentration - - Weight 80.1 kg (176 lb 9.4 oz) 12/18/2024 11:54 AM CDT Height 170.2 cm (5' 7) 12/18/2024 11:54 AM CDT Body Mass Index 27.66 12/18/2024 11:54 AM CDT Plan of Treatment Health Maintenance Due Date Last Done Comments Cervical Cancer Screening Pa p Smear (Age 21 to 29) Every 3 Years 2001 Cervical Cancer Screening 2001 Annual Physical 2004 Hepatitis B Vaccines (1 of 3 - 19+ 3-dose series) 2020 Chlamydia Screening Females ages 16-24 06/21/2023 06/20/2022 COVID-19 Vaccine (1 - 2024-2 6 season) 2024 Influenza Adult (#1) 2024 RSV Immunization or 60+ Years (1 - Risk 1-dose series) 02/04/2025 DTaP, Tdap and Td Vaccines ( 4 - Td or Tdap) 10/23/2032 10/23/2022, 2001, 2001 HPV Vaccines Completed 11/07/2015, 09/20/2012 Meningococcal Vaccine Completed 06/14/2018 Meningococcal B Vaccine Completed 07/16/19 19, 06/14/2018 Hepatitis C Completed 06/20/2022 Hepatitis A Vaccines Aged Out No long er eligible based on patient's age to complete this topic Pneumococcal Vaccine: Pediatrics (0 to 5 Years) [...] Procedure Name Priority Date/Time Associated Diagnosis Comments XR SHOULDER LT 3V STAT 12/18/2024 12: 31 PM CDT CHLAMYDIA GC RNA Routine 06/20/2022 5:30 PM CDT Miscarriage (HHS/HCC) HEPATITIS PANEL,ACUTE Routine 06/20/2022 2:40 PM CDT Miscarriage (HHS/HCC) from Last 3 Months or Most Recently Relevant to Health Maintenance Results * XR SHOULDER LT 3V (12/18/2024 12:31 PM CDT) Anatomical Region Laterality Modality Shoulder Radiographic Awilda ging 12/18/2024 12:4 6 PM CDT Impressions 12/18/2024 12:46 PM CDT IMPRESSION: 1) No significant radiographic abnormality. Ordered By: MOISES ALEXANDER Interpreted By: Jason Banks MD, 12/18/2024 12:46 PM Narrative 12/18/2024 12:46 PM CDT [facility] [address] [place], [place] [address] Examination: XR SHOULDER LT 3V Exam time: 12/18/2024 12:05 PM Clinical history: Injury, shoulder pain Comparison: None Technique: AP, Grashey and transscapular views Findings: No acute soft tissue abnormality. No evidence of fracture or dislocation. The glenohumeral joint and the AC joint are unremarkable. Procedure Note Jason Banks MD - 12/18/2024 [facility] [address] [place], [place] [address] Examination: XR SHOULDER LT 3V Exam time: 12/18/2024 12:05 PM Clinical history: Injury, shoulder pain Comparison: None Technique: AP, Grashey and transscapular views Findings: No acute soft tissue abnormality. No evidence of fracture ordislocation. The glenohumeral joint and the AC joint are unremarkable. IMPRESSION: 1) No significant radiographic abnormality. Ordered By: MOISES ALEXANDER Interpreted By: Jason Banks MD, 12/18/2024 12:46 PM [facility] Final Resu lt * (ABNORMAL) CHLAMYDIA GC RNA (06/20/2022 5:30 PM CDT) SPEC DESCRIPTION UNKNOWN 06/21/19 5:53 PM CDT [facility] CHLAMYDIA RNA TMA POSITIVE(A) NEGATIVE 2022 6:31 PM CDT [facility] Comment:PERFORMED BY NUCLEIC ACID AMPLIFICATION N.GONORRHOEAE RNA TMA POSITIVE(A) NEGATIVE 06/23/2022 6:31 PM CDT [facility] Comment:PERFORMED BY NUCLEIC ACID AMPLIFICATION URINE SPECIMEN / Unknown 06/20/2022 5:30 PM CDT Kiana Isaacs MD MICROBIOLOGY - GENERAL ORDERABL ES Final Result [facility] [address] [place] [address], [facility] [address] [place] [address], [place] [phone] * HEPATITIS PANEL,ACUTE (06/20/2022 2:40 PM CDT) HEPATITIS B SURFACE AG NON-REACTI VE NON-REACTI VE 06/20/2022 5:55 PM CDT [facility] HEP B CORE IGM NON-REACTI VE NON-REACTI VE 06/20/2022 5:56 PM CDT [facility] HAV IGM NON-REACTI VE NON-REACTI VE 06/20/2022 5:56 PM CDT [facility] HEPATITIS C AB NON-REACTI VE NON-REACTI VE 06/20/2022 5:56 PM CDT [facility] 06/20/2022 2:40 PM CDT us Kiana Isaacs MD LABORATORY Final Result [facility] [address] [place] [address], [place] [phone] from Last 3 Months or Most Recently Relevant to Health Maintenance Insurance [facility] Advance Directives * Full Code (Latest Code Status on File) Date Activated Date Inactivated Comments 07/27/2020 6:32 PM 07/29/2020 2:15 PM Care Teams Solution Manager Relationship Specialty Start Date End Date None, Provider, MD PCP - General UNKNOWN PHYSICIAN SPECIALTY 10/02/23
[2025-02-11 23:08] LABS: OBXCEM ROM Plus Negative (Negative)
== END 2025-02-11 22:45 | disposition home or self-care (01) ==
LOC: ANHOBOP 21:57 → ANHOBPP 21:58
PROVIDERS: Visit Provider Obstetrics & Gynecology
DX: O41.8X90 Other specified disorders of amniotic fluid and membranes, unspecified trimester, not applicable or unspecified (principal); Z3A.00 Weeks of gestation of pregnancy not specified
CPT/HCPCS: 59025; 84112

== ENCOUNTER 2025-03-02 10:35 | Inpatient (IN) | payer OTHER, SELFPAY ==
[2025-03-02] VITALS (49 sets, daily range): BP systolic 104–162; BP diastolic 53–96; PULSE 25–90; RESP 18; TEMP 36.2–36.6; O2SAT 89–100
--- NOTE | ~2025-03-02 | XR_ITS ---
EXAMINATION: XR abdomen/kub 1V DATE: 03/02/2025 14:00 INDICATION: No surgical count prior to urgent section. TECHNIQUE: A supine view of the abdomen on 2 radiographs was obtained. COMPARISON: None. FINDINGS: There are few surgical clips in the right lower quadrant projecting between the cecum and the right margin of the fundus of the enlarged post gravid uterus likely related to reported prior appendectomy. No other radiopaque foreign bodies identified. No dilated loops of gas-filled bowel to suggest obstruction. Bones and soft tissues are unremarkable. IMPRESSION: 1. A few surgical clips the right lower quadrant likely related to prior appendectomy. No other radiopaque foreign bodies identified. Reviewed, dictated and finalized at location A. RAGE MANAGER IMPRESSION: 1. A few surgical clips the right lower quadrant likely related to prior append ectomy. No other radiopaque foreign bodies identified.
--- NOTE | ~2025-03-02 | US_ITS ---
EXAMINATION: US OB BPP wo non-stress DATE: 03/02/2025 12:25 INDICATION: Left-sided abdominal pain and variable cardiac decelerations during third trimester TECHNIQUE: Real-time pelvic ultrasound was performed. The interpreting radiologist was not present for the study. COMPARISON: None. FINDINGS: There is a single living fetus in vertex presentation. The placenta is anterior. 1.5 cm hypoechoic internal placental venous powell heart rate is 152 beats per minute (bpm). Oligohydramnios with amniotic fluid index of 4.4 cm (5th%-95%: 7.9-24.9 cm at 31 weeks estimated gestational age). The cervix is obscured by the skull. The left ovary is visualized measuring 2.5 x 2.4 x 1.9 cm with internal vascular flow on color Doppler. The right ovary is not visualized. Biophysical profile performed by the technologist: breathing (30 sec sustained breathing in 30 minutes): 2 out of 2 movement (3 gross body movements in 30 minutes): 0 out of 2 tone (one episode of [id number] limb movement): 0 out of 2 Amniotic fluid pocket (2 cm): 0 out of 2 Total score: 2 out of 8 IMPRESSION: 1. Single living fetus in index presentation with heart rate of 152 bpm. 2. Biophysical profile 2 out of 8. 3. Oligohydramnios with amniotic fluid index of 4.4 cm. Reviewed, dictated and finalized at location A. RGY SPECIALIST
--- OUTSIDE RECORDS SUMMARY | 2025-03-02 10:39 | XMS_ITS | Clinical Summary ---
Author Organization [facility] Address [address] [place] [address] Care Team Providers Care Ultrasound Specialist Name Role Phone Trell Russell MD Primary Care Provider Source Comments [facility],non-Critical access hospitalates and Associated Physician Practices is amultiple site organization consisting of ambulatory clinics and hospital sitesin [place], [place], [place] and [place]. This disclosure is being madepursuant to the Care Everywhere program and may not contain all information available regarding this patient. Last updated 17.[facility] Allergies Active Allergy Reactions Criticality Noted Date [...] Encounters Date Type Department Care Team Description 03/02/2025 2:30 PM FORESTRY FIRE AID Hospital Encounter [facility] [address] [place] [address] Samantha Camejo MD 02/19/2025 Telephone Critical access hospital [facility] [address] [place] [address] Janis Reagan RN Future Appointment (Called Angela back to let her know patient is not wanting to come back to [facility] unless absolutely necessary. This M office doesn't treat for syphilis. Does OB office treat. Per Angela Toribio's office does not treat for syphilis therefore, she will reach out to [facility] to see if they can treat patient.) 02/16/2025 Telephone [facility] Health Maternal & Care [address] [place] [address] Janis Reagan RN Future Appointment (Patient called and said her OB office called and told her to make appointment with our office but patient's doesn't know why. ) from Last 3 Months Family History Medical [...] on file Legal Sex Female 7:17 AM FORESTRY FIRE AID Gender Identity Not on file Sexual Orientation Not on file Last Filed Vital Signs Vital Sign Reading Time Taken Comments Blood Pressure 108/73 11/08/2024 2:57 PM CDT Pulse 96 11/08/2024 2:57 PM CDT Temperature 36.7 C (98.1 F) 02/07/2023 10:16 PM FORESTRY FIRE AID Respiratory Rate 17 02/07/2023 10:16 PM FORESTRY FIRE AID Oxygen Saturation 100% 02/07/2023 10:16 PM FORESTRY FIRE AID Inhaled Oxygen Concentration - - Weight 77.6 kg (171 lb) 11/08/2024 2:57 PM CDT Height 170.2 cm (5' 7) 11/08/2024 2:57 PM CDT Body Mass Index 26.78 11/08/2024 2:57 PM CDT Plan of Treatment Upcoming Encounters Date Type Department Care Team (Late st Contact Info) Description 03/02/2025 2:30 PM FORESTRY FIRE AID Hospital Encounter [facility] Women's Health Maternal & Care [address] [place], [place] [id number] Samantha Camejo MD [facility] [address] [address] Health Maintenance Due Date Last Done Comments HIV SCREENING 2016 HPV VACCINE (1 - 3-dose series) 2016 CHLAMYDIA/GONORRHEA SCREENING 2017 MENINGOCOCCAL (Group B) VACCINE SHARED DECISION-MAKING (1 of 2 - Standard) 2017 HEPATITIS C SCREENING 03/14/2019 DTAP/TDAP/TD VACCINES (1 - Tdap) 2020 HEPATITIS B VACCINE (1 of 3 - 19+ 3-dose series) 2020 PAP SMEAR 2022 DEPRESSION SCREENING 03/08/2024 COVID-19 VACCINE (1 - 2024-2 6 season) 2024 INFLUENZA VACCINE (#1) 2024 OB-ONE HOUR GLUCOSE 12/24/2024 OB-TDAP CURRENT 12/31/20242022, 09/20/2012 OB-RHOGAM INJECTION 01/07/2025 Respiratory Syncytial Virus (RSV) Vaccine Pt: or over 60 yrs (1 - Risk 1-dose series) 02/04/2025 OB-GROUP B STREP SCREEN 02/25/2025 ZOSTER VACCINE (1 of 2) 2051 HIB VACCINE Aged Out No longer eligi ble based on patient's age to complete this topic MENINGOCOCCAL GROUPS A/C/Y/W VACCINE Aged Out No longer eligible b ased on patient's age to complete this topic PNEUMOCOCCAL VACCINE Aged Out No long er eligible based on patient's age to complete this topic Insurance [facility] [place] [address] Care Teams Ultrasound Specialist Relationship Specialty Start Date End Date Trell Russell MD [address] [place] [id number] PCP - General 07/07/21
--- OUTSIDE RECORDS SUMMARY | 2025-03-02 10:39 | XMS_ITS | Clinical Summary ---
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
--- OUTSIDE RECORDS SUMMARY | 2025-03-02 10:39 | XMS_ITS | Clinical Summary ---
Author Organization [facility] Address [facility] [place] [address] Care Team Providers Care Detective Chief Name Role Phone None, Provider MD Primary [...] CDT - 12/18/2024 1:51 PM CDT Emergency [facility] [place] [address] Rajeev Mirza MD Shoulder Pain Discharge Disposition: Home or Self Care (Routine Discharge) 12/18/2024 Travel from Last 3 Months Immunizations Immunization [...] Females ages 16-24 06/21/2023 06/20/2022 COVID-19 Vaccine ( - 2024-2 6 season) 2024 Influenza Adult [...] 12:46 PM Narrative 12/18/2024 12:46 PM CDT [address] [address] Examination: XR SHOULDER LT 3V Exam time: 12/18/2024 12:05 PM Clinical history: Injury, shoulder pain Comparison: None Technique: AP, Grashey and transscapular views Findings: No acute soft tissue abnormality. No evidence of fracture or dislocation. The glenohumeral joint and the AC joint are unremarkable. Procedure Note Jason Banks MD - 12/18/[address] [address] Examination: XR SHOULDER LT 3V Exam time: 12/18/2024 12:05 PM Clinical history: Injury, shoulder pain Comparison: None Technique: AP, Grashey and transscapular views Findings: No acute soft tissue abnormality. No evidence of fracture ordislocation. The glenohumeral joint and the AC joint are unremarkable. IMPRESSION: 1) No significant radiographic abnormality. Ordered By: MOISES ALEXANDER Interpreted By: Jason Banks MD, 12/18/2024 12:46 PM us Moises Alexander PA GENERAL IMAGING Final Resu lt * (ABNORMAL) CHLAMYDIA GC RNA (06/20/2022 5:30 PM CDT) Pathologist [facility] SPEC DESCRIPTION UNKNOWN 06/21/19 5:53 PM CDT [facility] CHLAMYDIA RNA TMA POSITIVE(A) NEGATIVE 2022 6:31 PM CDT [facility] Comment:PERFORMED BY NUCLEIC ACID AMPLIFICATION N.GONORRHOEAE RNA TMA POSITIVE(A) NEGATIVE 06/23/2022 6:31 PM CDT [facility] Comment:PERFORMED BY NUCLEIC ACID AMPLIFICATION URINE SPECIMEN / Unknown 06/20/2022 5:30 PM CDT us Kiana Isaacs MD MICROBIOLOGY - GENERAL ORDERABL ES Final Result [facility] [address] [place] [address], [place] [phone] [facility] [address] [place] [address], [place] [phone] * HEPATITIS PANEL,ACUTE (06/20/2022 2:40 PM CDT) HEPATITIS B SURFACE AG NON-REACTI VE NON-REACTI VE 06/20/2022 5:55 PM CDT [facility] HEP B CORE IGM NON-REACTI VE NON-REACTI VE 06/20/2022 5:56 PM CDT [facility] HAV IGM NON-REACTI VE NON-REACTI VE 06/20/2022 5:56 PM CDT [facility] HEPATITIS C AB NON-REACTI VE NON-REACTI VE 06/20/2022 5:56 PM CDT [facility] 06/20/2022 2:40 PM CDT us Kiana Isaacs MD LABORATORY Final Result [facility] [address] [place] [address], from Last 3 Months or Most Recently Relevant to Health Maintenance Insurance Advance Directives * Full Code (Latest Code Status on File) Date Activated Date Inactivated Comments 07/27/2020 6:32 PM 07/29/2020 2:15 PM Care Teams Detective Chief Relationship Specialty Start Date End Date None, Provider, PCP - General UNKNOWN PHYSICIAN SPECIALTY 10/02/23
[2025-03-02 11:15] LABS: Add Urine Microscopic? YES; Appearance Urine Cloudy (Clear); Glucose Urine UA Negative (Negative); Leukocyte Esterase Ur Trace LEU/UL (Negative); Nitrate Urine Negative (Negative); Non Pathogenic Casts 0-2; Specific Grav Ur 1.029 (1.001-1.035)
--- NOTE | 2025-03-02 11:34 | PC.NURSE ---
Dr Garcia notified of decels noted on tracing, tracing reviewed in office by , order for BPP. Also informed of UA results, no further orders.
[2025-03-02] MEDS: FAMOTIDINE 20 MG/2 ML VIAL IV PUSH (12:43)
[2025-03-02] MEDS: ONDANSETRON INJ 4 MG/2 ML VIAL IV PUSH (12:45)
[2025-03-02] MEDS: ONDANSETRON INJ 4 MG/2 ML VIAL (12:45)
--- NOTE | 2025-03-02 12:47 | WPDANESEPPF ---
Anes - Initial Pre Proc Eval Date/Time: 03/02/25 12:47 Surgeon: Wilfredo Toribio MD Pre Op Diagnosis: Abdominal pain Patient Data Age: 24 Gender: F Height: Weight: Last Vital Signs Pulse 59 L 03/02/25 11:30 BP 124/82 03/02/25 11:30 Allergies Allergy/AdvReac Type Severity Reaction Status Date / Time coconut AdvReac Intermediate Rash Verified 02/19/25 14:53 Home Medications ?Medication ?Instructions ?Recorded ?Confirmed ?Type docosahexaenoic acid 200 mg mg PO 09/19/24 02/19/25 History capsule ( DHA) lidocaine 4 % topical gel 1 applic topical QID PRN pain 10 12/29/24 02/19/25 Rx days #30 grams ketoconazole 2 %-hydrocortisone 1 applic topical TID Skin 01/20/25 02/19/25 Rx 2.5 % topical cream candidiasis 2 weeks #150 grams RSV vac, preF A and preF B(PF) 120 0.5 ml IM ONCE #1 ea 02/06/25 02/19/25 Rx mcg/0.5 mL IM solution (Abrysvo (PF)) Laboratory Tests 03/02/25 11:04 Urine Color Yellow (Yellow) Urine Appearance Cloudy H (Clear) Urine pH 6.5 (5.0-9.0) Ur Specific [place] 1.029 (1.001-1.035) Urine Protein Trace mg/dL (Negative) Urine Glucose (UA) Negative mg/dL (Negative) Urine Ketones Negative mg/dL (Negative) Ur Blood (Man) Negative (Negative) Urine Nitrate Negative (Negative) Urine Bilirubin Negative (Negative) Urine Urobilinogen 1.0 mg/dL (<2.0) Ur Leukocyte Esterase Trace H JORJE/UL (Negative) Urine RBC 0-2 /hpf (0-2) Urine WBC 6-10 H /hpf (0-3) Ur Squamous Epith Cells Few /hpf (Few) Urine Bacteria 2+ H /hpf Urine Casts 0-2 Patient hx anesthesia problems: none Family hx anesthesia problems: none Results Review: All pre-operative results and documents have been reviewed as part of the pre-operative evaluation. 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 Surgical History Surgical History History of appendectomy Family History Family History Father Hypertension Smoker Grandparent Diabetes mellitus Alzheimer disease Chronic obstructive pulmonary disease Social History Social History Smoking status: Never smoker Second hand tobacco smoke exposure: No Alcohol intake: never Substance use: never Substance use type: does not use Lack of Transportation: No Lack of Food: Never True Current Housing: Decline to Answer Concerned About Future Housing: Decline to Answer Difficulty Paying Gas/Electric Bills: Decline to Answer Difficulty Paying for Meds: Decline to Answer Currently Unemployed: Decline to Answer Education: Decline to Answer Difficulty w/ Childcare or Family Care: Decline to Answer Living arrangements: other Additional living arrangements comments: single Occupation/Education: occupation Additional occupation/education comments: [employer] Gender identity (if verbalized by the patient): Female Sexual Orientation (if Verbalized by the Patient): Straight or Heterosexual Spiritual care concerns: No Anes - Eval Final PreProcedure Day of Procedure 03/02/25 12:47 Patient weight: overweight Heart: regular rate and rhythm Lungs: decreased breath sounds Airway: Mallampati scale class II Neurological: alert and oriented ASA classification: II Emergent: no Anesthetic plan: proceed Anesthesia type and monitoring: regional spinal and standard monitoring Results Review: All pre-operative results and documents have been reviewed as part of the pre-operative evaluation. Informed Consent: The patient's anesthetic plan and its attendant risks and benefits were discussed with the patient/family/POA. Questions were solicited and answers provided to the satisfaction of the patient/family/POA.
--- NOTE | 2025-03-02 12:56 | P.HP_ITS ---
H&P: HPI History of Present Illness Date/Time: 03/02/25 12:56 Chief Complaint: Intrauterine at 35w gestation non-reassuring status Narrative: 24-year-old 011 who presents at 35 weeks with complaint of abdominal pain. heart tracings initially were not reactive. Patient was sent for BPP. BPP returned with a score of 2/10. When patient was placed back on monitoring, heart tones were noted to be flat with minimal variability, no accelerations and no decelerations. Patient's is complicated by history of syphilis. Patient states she was treated in 2022. 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 Denies any symptoms. Review of Systems Cardiovascular: Cardiovascular: Denies chest pain, Denies leg edema, Denies palpitations, Denies dyspnea and Denies dyspnea on exertion Respiratory: Respiratory: Denies cough, Denies dyspnea and Denies dyspnea on exertion Gastrointestinal: Gastrointestinal: Denies abdominal pain, Denies constipation, Denies diarrhea, Denies nausea and Denies vomiting Genitourinary: Genitourinary: Denies hematuria, Denies urinary frequency, Denies dysuria, Denies pelvic pain, Denies urinary incontinence and Denies vaginal discharge Neurologic: Reports system reviewed and no additional complaints, except as documented Psychiatric: Psychiatric: Reports no additional psychiatric complaints Endocrine: Endocrine: Denies palpitations PMFSH Past Medical History Medical History (Updated 03/02/25 @ 12:59 by Zachariah Garcia MD) 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 Surgical History Surgical History History of appendectomy Family History Family History Father Hypertension Smoker Grandparent Diabetes mellitus Alzheimer disease Chronic obstructive pulmonary disease Social History Social History Smoking status: Never smoker Second hand tobacco smoke exposure: No Alcohol intake: never Substance use: never Substance use type: does not use Lack of Transportation: No Lack of Food: Never True Current Housing: Decline to Answer Concerned About Future Housing: Decline to Answer Difficulty Paying Gas/Electric Bills: Decline to Answer Difficulty Paying for Meds: Decline to Answer Currently Unemployed: Decline to Answer Education: Decline to Answer Difficulty w/ Childcare or Family Care: Decline to Answer Living arrangements: other Additional living arrangements comments: single Occupation/Education: occupation Additional occupation/education comments: [employer] Gender identity (if verbalized by the patient): Female Sexual Orientation (if Verbalized by the Patient): Straight or Heterosexual Spiritual care concerns: No Meds Home Medications and Allergies Home Medications ?Medication ?Instructions ?Recorded ?Confirmed ?Type docosahexaenoic acid 200 mg mg PO 09/19/24 02/19/25 Hi story capsule ( DHA) lidocaine 4 % topical gel 1 applic topical QID PRN adithya n 10 12/29/24 02/19/25 Rx days #30 grams ketoconazole 2 %-hydrocortisone 1 applic topical TID S kin 01/20/25 02/19/25 Rx 2.5 % topical cream candidiasis 2 weeks #150 gra ms RSV vac, preF A and preF B(PF) 120 0.5 ml IM ONCE #1 e a 02/06/25 02/19/25 Rx mcg/0.5 mL IM solution (Abrysvo (PF)) Allergies Allergy/AdvReac Type Severity Reaction Status Date / Time coconut AdvReac Intermediate Rash Verified 02/19/25 14:53 Vital Signs Vital Signs - 24 hr 03/02/25 10:46 03/02/25 11:00 03/02/25 11:15 Pulse Rate 80 74 66 Blood Pressure 104/67 106/70 108/77 Pulse Oximetry 03/02/25 11:30 03/02/25 12:54 03/02/25 12:55 Pulse Rate 59 L 66 Blood Pressure 124/82 148/96 H Pulse Oximetry 89 L Exam Const: General: no acute distress Eyes: EOM: EOMs intact bilaterally Neck: Neck: supple Thyroid: thyroid normal Chest: Breast/axilla inspection: normal inspection of the breasts Breast/axilla palpation: normal palpation of the breasts, normal palpation of the axillae and no axillary lymphadenopathy Resp: Effort & Inspection: normal respiratory effort Auscultation: clear to auscultation bilaterally Cardio: Rate: regular rate Rhythm: regular rhythm GI: Inspection: non-distended and other (Gravid) GI Palp: Yes Soft to palpation, No Tenderness to palpation present (GI) and No Guarding due to palpa tion present (GI) Auscultation: normal bowel sounds : Speculum Exam - Vagina: No vaginal bleeding OB/external & speculum: external exam normal; No vaginal bleeding Skin: General skin exam: normal color and no rashes or lesions noted Neuro: Cognition (Neuro): normal cognition Speech: normal speech Extrem: General: normal to inspection Psych: Mental Status: mental status grossly normal Affect: normal affect Results Labs Labs: Urine 03/02/ Range/Units 11:04 Urine Color Yellow (Yellow) Urine Appearance Cloudy H (Clear) Urine pH 6.5 (5.0-9.0) Ur Specific [place] 1.029 (1.001-1.035) Urine Protein Trace (Negative) mg/dL Urine Glucose (UA) Negative (Negative) mg/dL Assessment and Plan Assessment and plan (1) Non-reassuring status: Status: Acute Assessment and Plan: Patient was found have a 2/10 on BPP heart tracings were noted to be flat with minimal variability, no accelerations, no deceleration Who recommended delivery Patient's cervix is 1 cm Recommended proceeding with primary due to nonreassuring status remote from delivery Risks, benefits, alternatives reviewed (2) : Code(s): Z34.90 - Encounter for supervision of normal , unspecified, unspecified trimester Status: Inactive Assessment and Plan: ... 1. Rh-...Rhogam 6 week ER due to bleed. Repeat 28 week 2. h/o syphilis- treated 2022 3. HSV 2... prophylaxis at 36 weeks (3) Syphilis: Code(s): A53.9 - Syphilis, unspecified Status: Acute
[2025-03-02 12:58] LABS: Hematocrit 38.7 % (37.0-47.0); Hemoglobin 12.1 g/dL (12.0-15.0); Immature Granulocyte Percent A 1.1 % (0-0.5); Lymphocytes Absolute Auto 2.18 K/mm3 (0.9-3.2); Mean Corpuscular HGB Conc 31.3 g/dl (32-36); Mean Corpuscular Hemoglobin 26.5 pg (26-34); Mean Corpuscular Volume 84.7 fl (80-100); Nucleated Red Blood Cells Absolute Auto 0.000 K/mm3 (0.0-0.012); Nucleated Red Blood Cells Perc 0.0 % (0.0-0.2); Platelet Count Result 278 k/mm3 (150-375); Red Blood Count 4.57 M/mm3 (4.2-5.4); White Blood Count 8.8 K/mm3 (4.5-10.0)
[2025-03-02] MEDS: ceFAZolin 2 GM in SODIUM CHLORIDE 0.9% IV 50 ML 100 ML IVPB (12:58)
[2025-03-02 13:11] LABS: Alanine Aminotransferase 8 U/L (6-35); Albumin Level 4.0 g/dL (3.5-5.1); Alkaline Phosphatase 151 U/L (38-126); Anion Gap 7 mmol/L (4-12); Aspartate Amino Transferase 20 U/L (14-36); Bilirubin,Total 0.3 mg/dL (0.2-1.3); Blood Urea Nitrogen 9 mg/dL (7-17); Calcium 8.9 mg/dL (8.4-10.2); Carbon Dioxide 21 mmol/L (22-30); Chloride 107 mmol/L (98-107); Estimated Glomerular Filt Rate > 60; Glucose 71 mg/dL (65-110); Potassium 3.8 mmol/L (3.4-5.0); Sodium 135 mmol/L (137-145); Total Protein 8.0 g/dL (6.3-8.2)
--- NOTE | 2025-03-02 13:49 | P.PCNOB_ITS ---
OB - Delivery Note Procedure Delivery date: 03/02/25 Pre-op diagnosis: Non-Reassuring Status Post-op Diagnosis: Same Induction method: None Delivery monitor: External FHT Prior to decision for section, ACOG/SMFM labor guidelines were considered and discussed with the patient and staff. Decision made to proceed with the section.: Yes Procedure Performed: Primary Primary branch: low cervical, transverse Surgeon: Zachariah Garcia MD Anesthesia type: Spinal Description of Procedure/Findings: The patient was taken to the operating room. A combined spinal epidural anesthesic was administered and found to be adequate at a t-10 level. The patient was placed in a supine position with a slight left lateral tilt. A sauceda catheter was placed with return of clear urine. A Bovie grounding pad was placed. Surgical prep was performed and surgical drapes were placed. A surgical time out was performed. A Pfannenstiel skin incision was then made with the scalpel and carried through to the underlying layer of fascia. The fascia was then incised in the midline and the incision was extended bluntly. The midline of the rectus muscles was identified and entered bluntly. The peritoneum was also identified and entered bluntly. This incision was extended both laterally and inferiorly. The bladder blade was reinserted. The uterus was inspected for rotation. A low-transverse uterine incision was made sharply with the scalpel and entry was made into the uterine cavity. An amniotomy was made and copious amounts of clear fluid were noted on return. The uterine incision was extended laterally bluntly. The bladder blade was removed and the fetus was delivered atraumatically. The nose and mouth were suctioned with a bulb syringe. The umbilical cord was clamped twice and cut. The infant was handed off to the waiting staff. At the time of the delivery, the had good color, tone and grimace. The infant cried with minimal stimulation. A second segment of umbilical cord was clamped and cut for cord blood gasses. Cord blood was collected for determination of the blood type and for direct Peña. The placenta was delivered spontaneously without difficulty. The placenta appeared grossly normal and complete. The uterus was exteriorized and cleared of all clots and debris. The uterine incision was repaired using 0-monocryl suture in a running fashion. A second layer of 0 Monocryl suture was used in an imbricating fashion to obtain excellent hemostasis and uterine strength. The uterine closure was inspected for hemostasis. The posterior aspect of the uterus and the broad ligaments were inspected and the posterior cul-de-sac cleared of fluid and blood clots. The uterine closure was again inspected and found to be hemostatic. The uterus was returned to the abdominal cavity. The pericolic gutters were inspected and were cleared of all blood clots and debris. The uterine closure was then re inspected to ensure hemostasis as were all subfascial tissues. The peritoneum was closed using 3-0 vicryl in a running fashion. The fascia was reapproximated with 0-vicryl in a running fashion. The subcutaneous tissue was irrigated and hemostasis achieved with electrocautery. It was reapproximated wit h 3-0 vicryl in a running fashion. The skin was closed with 4-0 vicryl in a subcuticular fashion. A sterile dressing was applied to the wound. The patient tolerated the procedure well. Sponge, lap and needle counts were correct times three. The patient was taken to recovery in stable condition and without anticipated complications. Specimen: Yes (placenta) Estimated Blood Loss: 390 Drains: No Packing: No Pathology: Yes (Placenta) Complications: No immediate complications Condition: Stable Disposition: Floor [place] Baby Date of : 03/02/25 Gestational Age by Date: 35 Infant gender: Female presentation: vertex Placenta delivery description: Manual Removal Cord Vessel Description: 3 Vessels
[2025-03-02 13:52] LABS: HIV 1/2 Ab P24 Ag Result Negative (Negative)
--- NOTE | 2025-03-02 14:30 | PC.NURSE ---
Patient has a hx of HSV primary out break during . Bright light performed during recovery. No lesion noted during exam.
--- OUTSIDE RECORDS SUMMARY | 2025-03-02 14:30 | XMS_ITS | Encounter Summary ---
Author Organization [facility] Address [address] [place] [address] Care Team Providers Care Adjuster Name Role Phone Trell Russell MD Primary Care Provider [phone] Reason for Visit * Reason Comments Ultrasound Non-stress Test Biophysical Profile Encounter Details Date Type Department Care Team (Late st Contact Info) Description 03/02/2025 2:30 PM [facility] [facility] [facility] Hospital Encounter [facility] [address] [place], [place] [id number] Samantha Camejo MD [address] [id number] Social History Tobacco Use Types Packs/Day Years Used Date Smoking Tobacco: Never Smokeless Tobacco: Never Alcohol Use Standard Drinks/Week Comments Not Currently 0 (1 standard drink = 0.6 oz pur e alcohol) Estimated Date of Delivery Comme nts Yes 04/01/2025 Based on Ultraso und Sex and Gender Information Value Date Recorded Sex Assigned at Not on file Legal Sex Female 7:17 AM [employer] Gender Identity Not on file Sexual Orientation Not on file documented as of this encounter Plan of Treatment Not on file documented as of this encounter Visit Diagnoses Diagnosis Syphilis affecting in third trimester (HCC)- Primary with prior adverse outcome: midtrimester loss, possibly secondary to syphilis History of prior with SGA 35 weeks gestation of (HCC) state, incidental Encounter for ultrasound to assess growth (HCC) Encounter for follow-up ultrasound of anatomy (HCC) documented in this encounter Care Teams Adjuster Relationship Specialty Start Date End Date Trell Russell MD [address] [place] [address] PCP - General 07/07/21 documented as of this encounter
--- NOTE | 2025-03-02 14:33 | S_PTH ---
PATIENT: Peggy Callahan LOC: [id number] U#:[id number] AGE/SX: 24/F ROOM: 282 RE03/02/[address]: Zachariah Garcia MD : 2000 BED: 00 DIS: 03/05/2025 SPEC #: [id number] RECD: 03/05/25 07:31 STATUS: OSVALDO REKorey #: [id number] JESSICA: 03/02/25 14:[address]: Zachariah Garcia DEPT: [facility] Surgical RECD BY: Selena Turner ENTERED: 03/05/25 07:36 SP TYPE: Surgical OTHR DR: Wilfredo Toribio MD Tissues: A - Placenta Procedures: Hematoxylin and Eosin Stain Gross and Microscopic Level 5
[2025-03-02 14:45] LABS: Syphilis IgG/IgM Antibody Reactive (Nonreactive)
--- NOTE | 2025-03-02 14:48 | LDADM ---
This patient, Peggy Callahan, was admitted to OB Post 117 on 03/02/25 at 12:37. Plans for labor, pain management and were discussed with patient. Patient/family oriented to hospital policies and general routines including ID bracelet, bed and alarms, visiting hours, pain management, procedures, bathroom and other care routines, personal items, smoking policy, room service/diet and guest tray routines, security routines, and visiting hours. Patient/Family are encouraged to report perceived risks to care and to ask questions if they do not understand what they are told or what they should do. See OBIX for further documentation.
--- NOTE | 2025-03-02 15:35 | NBADM ---
This patient Peggy Callahan was born on [birth year] at 12:37. Apgars 8/9. to radiant warmer. Infant vigorous and crying. Infant pinking slowly. HR good. Lung sounds clear/coarse. deleed <1 ml thick clear amniotic fluid. assessment completed and infant wrapped and to mother.
[2025-03-02 15:53] LABS: Cannabinoid Screen Urine Negative (Negative)
[2025-03-02] MEDS: OXYTOCIN 30 UNITS/NS 500 ML 30 UNITS/500 ML BAG 125 UNITS IV CONT (16:00)
--- NOTE | 2025-03-02 16:00 | SUR.PHASEI ---
1600 mom visiting with level II baby, then will move to PP.
[2025-03-02] MEDS: ACETAMINOPHEN 500 MG TABLET 1000 MG (16:22)
[2025-03-02] MEDS: LACTATED RINGERS 1,000 ML 125 ML IV CONT (16:28)
[2025-03-02 16:45] LABS: OBXCEM ROM Plus Negative (Negative)
--- NOTE | 2025-03-02 17:41 | OBPPTRN ---
Patient transferred to post room #282 via stretcger. Oriented to unit, room, information board, rooming in, admission packet and security measures. Patient verbalizes understanding.
[2025-03-02] MEDS: KETOROLAC 15 MG/ML VIAL (*BKC) IV PUSH (18:00)
[2025-03-02] MEDS: SIMETHICONE 80 MG TAB.CHEW PO (18:01)
[2025-03-02] MEDS: oxyCODONE HCL (*CRX) 5 MG TAB IR PO (19:50)
[2025-03-02] MEDS: DEXTROSE 5%/0.45% SOD CHL 1,000 ML 125 ML IV CONT (20:58)
[2025-03-03] VITALS: BP 137/85; PULSE 72; RESP 18; TEMP 36.8; O2SAT 100
[2025-03-03] MEDS: oxyCODONE HCL (*CRX) 5 MG TAB IR PO ×2 (04:10→09:27)
[2025-03-03 04:56] LABS: Hematocrit 34.3 % (37.0-47.0); Hemoglobin 10.5 g/dL (12.0-15.0); Immature Granulocyte Percent A 0.7 % (0-0.5); Lymphocytes Absolute Auto 2.80 K/mm3 (0.9-3.2); Mean Corpuscular HGB Conc 30.6 g/dl (32-36); Mean Corpuscular Hemoglobin 26.7 pg (26-34); Mean Corpuscular Volume 87.3 fl (80-100); Nucleated Red Blood Cells Absolute Auto 0.000 K/mm3 (0.0-0.012); Nucleated Red Blood Cells Perc 0.0 % (0.0-0.2); Platelet Count Result 245 k/mm3 (150-375); Red Blood Count 3.93 M/mm3 (4.2-5.4); White Blood Count 11.6 K/mm3 (4.5-10.0)
[2025-03-03] MEDS: ACETAMINOPHEN 500 MG TABLET 1000 MG PO ×6 (05:30→23:00)
[2025-03-03] MEDS: KETOROLAC 15 MG/ML VIAL (*BKC) IV PUSH ×2 (05:30)
--- NOTE | 2025-03-03 07:13 | PM.OBPNVD ---
OB - PN: Subj Subjective Date/time seen: 03/03/25 07:13 Patient comments: no complaints, pain well controlled, tolerating diet and flatus present OB - PN: Obj Data Labs 03/03/25 04:17 03/02/25 12:45 Labs: Laboratory Results - last 24 hr 03/02/25 03/02/25 03/02/25 11:04 12:45 15:30 WBC 8.8 RBC 4.57 Hgb 12.1 Hct 38.7 MCV 84.7 MCH 26.5 MCHC 31.3 L RDW 13.0 Plt Count 278 MPV 9.4 Immature Gran % (Auto) 1.1 H Neut % (Auto) 67.0 Lymph % (Auto) 24.7 Davidson % (Auto) 5.7 Eos % (Auto) 0.6 Baso % (Auto) 0.9 Lymph # (Auto) 2.18 Davidson # (Auto) 0.5 Eos # (Auto) 0.1 Baso # (Auto) 0.1 Abs Immat Gran (auto) 0.10 H Absolute Neuts (auto) 5.9 Absolute Nucleated RBC 0.000 Nucleated RBC % 0.0 Sodium 135 L Potassium 3.8 Chloride 107 Carbon Dioxide 21 L Anion Gap 7 BUN 9 Creatinine 0.70 Estim Creat Clear Calc Not Reportable Estimated GFR > 60 Glucose 71 Calcium 8.9 Total Bilirubin 0.3 AST 20 ALT 8 Alkaline Phosphatase 151 H Total Protein 8.0 Albumin 4.0 Urine Color Yellow Urine Appearance Cloudy H Urine pH 6.5 Ur Specific [place] 1.029 Urine Protein Trace Urine Glucose (UA) Negative Urine Ketones Negative Ur Blood (Man) Negative Urine Nitrate Negative Urine Bilirubin Negative Urine Urobilinogen 1.0 Ur Leukocyte Esterase Trace H Urine RBC 0-2 Urine WBC 6-10 H Ur Squamous Epith Cells Few Urine Bacteria 2+ H Urine Casts 0-2 Membranes Rupture Rom plus negative Urine Opiates Screen Negative Urine Methadone Screen Negative Ur Barbiturates Screen Negative Ur Phencyclidine Scrn Negative Ur Amphetamine Screen Negative U Benzodiazepines Scrn Negative Urine Cocaine Screen Negative U Cannabinoids Screen Negative Syphilis IgG/IgM Ab Reactive A HIV 1&2 Ab/P24 Ag 4thGn Negative Blood Type B Negative Antibody Screen Positive Antibody Identification Passive Due to RH Imm Glob Antigen Identification Cancelled PRITI, IgG Interpret Not Performed PRITI, Poly Interpret Negative PRITI, Complement Interp Not Performed 03/03/25 04:17 WBC 11.6 H RBC 3.93 L Hgb 10.5 L Hct 34.3 L MCV 87.3 MCH 26.7 MCHC 30.6 L RDW 13.1 Plt Count 245 MPV 9.9 Immature Gran % (Auto) 0.7 H Neut % (Auto) 67.2 Lymph % (Auto) 24.1 Davidson % (Auto) 5.8 Eos % (Auto) 1.5 Baso % (Auto) 0.7 Lymph # (Auto) 2.80 Davidson # (Auto) 0.7 H Eos # (Auto) 0.2 Baso # (Auto) 0.1 Abs Immat Gran (auto) 0.08 H Absolute Neuts (auto) 7.8 H Absolute Nucleated RBC 0.000 Nucleated RBC % 0.0 Sodium Potassium Chloride Carbon Dioxide Anion Gap BUN Creatinine Estim Creat Clear Calc Estimated GFR Glucose Calcium Total Bilirubin AST ALT Alkaline Phosphatase Total Protein Albumin Urine Color Urine Appearance Urine pH Ur Specific [place] Urine Protein Urine Glucose (UA) Urine Ketones Ur Blood (Man) Urine Nitrate Urine Bilirubin Urine Urobilinogen Ur Leukocyte Esterase Urine RBC Urine WBC Ur Squamous Epith Cells Urine Bacteria Urine Casts Membranes Rupture Urine Opiates Screen Urine Methadone Screen Ur Barbiturates Screen Ur Phencyclidine Scrn Ur Amphetamine Screen U Benzodiazepines Scrn Urine Cocaine Screen U Cannabinoids Screen Syphilis IgG/IgM Ab HIV 1&2 Ab/P24 Ag 4thGn Blood Type Antibody Screen Antibody Identification Antigen Identification PRITI, IgG Interpret PRITI, Poly Interpret PRITI, Complement Interp Imaging Radiologist's impression: Impressions Obstetrics US/Biophysical Profile 03/02/25 12:35 IMPRESSION: 1. Single living fetus in index presentation with heart rate of 152 bpm. 2. Biophysical profile 2 out of 8. 3. Oligohydramnios with amniotic fluid index of 4.4 cm. Abdomen X-Ray 03/02/25 14:12 IMPRESSION: 1. A few surgical clips the right lower quadrant likely related to prior appendectomy. No other radiopaque foreign bodies identified. OB - PN A/P Plan day: 1 Plan: routine care Comments: patient doing well H/H 10. afebrile, VSS incision C/D/I sauceda removed, voiding spontaneously continue routine post op care Time Spent With Patient Time: Total time spent is greater than 50% in coordination of care (as documented) at patient's floor/unit and/or counseling patient: Time with patient: less than 15 minutes Review of Systems Constitutional: Constitutional: Reports no additional constitutional complaints Cardiovascular: Cardiovascular: Reports no additional cardiovascular complaints Respiratory: Respiratory: Reports no additional respiratory complaints Gastrointestinal: Gastrointestinal: Reports no additional gastrointestinal complaints Genitourinary: Genitourinary: Reports no additional female genitourinary complaints Exam Const: General: comfortable and no acute distress Resp: Effort & Inspection: normal respiratory effort Auscultation: clear to auscultation bilaterally Cardio: Rate: regular rate GI: GI Palp: Yes Soft to palpation, Yes Tenderness to palpation present (GI) (around incision ) and No Guarding due to palpation present (GI) Auscultation: normal bowel sounds Other: incision C/D/I, covered with Dermabond Psych: Appearance: grossly normal Mental Status: mental status grossly normal Affect: normal affect
[2025-03-03 08:13] VITALS: BP 110/75; PULSE 67; RESP 18; TEMP 36.8; O2SAT 100
[2025-03-03] MEDS: MULTIVIT/MIN/PREN/FOL AC/IRON TABLET 1 TAB PO (09:27)
[2025-03-03] MEDS: SIMETHICONE 80 MG TAB.CHEW PO ×4 (09:27→17:15)
[2025-03-03] MEDS: DOCUSATE SODIUM 100 MG CAPSULE PO ×2 (09:27→17:15)
--- NOTE | 2025-03-03 10:33 | PC.NURSE ---
0930- Pt down to nursery via WC to visit
[2025-03-03] MEDS: IBUPROFEN 600 MG TABLET PO ×4 (11:11→23:00)
--- NOTE | 2025-03-03 11:50 | PC.NURSE ---
1150- Pt declines pumping breasts at this time. States she wants to have formula.
[2025-03-03 16:30] VITALS: BP 122/88; PULSE 98; RESP 14; TEMP 37.6; O2SAT 99
[2025-03-03] MEDS: oxyCODONE HCL (*CRX) 5 MG TAB IR 10 MG PO ×2 (16:33→22:00)
--- NOTE | 2025-03-03 16:59 | WPDANLDPN2 ---
Anes-Prog Note L&D Date/Time: 03/03/25 16:59 Comfortable throughout: section Neuraxial method: spinal Epidural/Spinal procedure site: clean & non-tender Neuro status: Neuro function grossly intact. Vital Signs: Last Vital Signs Temp 98.2 F 03/03/25 08:13 Pulse 67 03/03/25 08:13 Resp 18 03/03/25 08:13 BP 110/75 03/03/25 08:13 Pulse Ox 100 03/03/25 08:13 O2 Del Method Room Air 03/03/25 00:00 Pain score (VAS): 0 I/O: Intake & Output 03/03/25 03/03/25 03/03/25 07:59 15:59 23:59 Intake Total 2500 200 Output Total 1700 Balance 800 200 Patient feedback: Patient satisfied with anesthetic care.
--- NOTE | 2025-03-03 17:00 | WPDANLDNPN2 ---
Anes-Prog Note L&D-Neuraxial Date/Time: 03/03/25 17:00 Neuraxial medications: intrathecal PF morphine Opiod-related complaints: pruritis severe, treatment refractory Patient feedback: Patient satisfied with post-operative pain management.
[2025-03-03 18:40] VITALS: BP 126/81; PULSE 79; RESP 18; TEMP 36.9; O2SAT 100
--- NOTE | 2025-03-03 18:50 | PC.NURSE ---
1850- Pt down to level 2 nursery via wheelchair to visit infant.
[2025-03-04] MEDS: ACETAMINOPHEN 500 MG TABLET 1000 MG PO ×4 (05:00→23:10)
[2025-03-04] MEDS: IBUPROFEN 600 MG TABLET PO ×4 (05:00→23:10)
[2025-03-04] MEDS: oxyCODONE HCL (*CRX) 5 MG TAB IR PO ×3 (05:00→12:58)
[2025-03-04 07:30] VITALS: BP 122/80; PULSE 89; RESP 14; TEMP 37.2; O2SAT 100
--- NOTE | 2025-03-04 08:00 | P.DS_ITS ---
DS: Admitting Diagnosis Discharge Date 03/04/25 Admitting Diagnosis intrauterine at 35w non-reassuring status DS: Discharge Diagnosis Discharge Diagnosis (1) delivery delivered: Code(s): O82 - Encounter for delivery without indication Status: Acute OB - DS: Summary Hospital Course Hospital Course: 24 yo female who presented to L&D with complaint of abdominal pain at 35w gestation. FHT were not reactive on NST. She was sent for BPP and scored a 2/10. When the patient returned to L&D, FHT had minimal variability and no accelerations. Patient underwent an uncomplicated primary for non- reassuring status. Patient had an uncomplicated primary . She was delivered on POD#2. OB Procedures : None OB Procedures Intrapartum: OB Procedures: : None Peripartum Data Infant Delivery Method: Section Procedures: Procedures Operation Date: 03/02/25 12:50 Actual Procedure Side Surgeon p Section Bilateral Zachariah Garcia MD complications: none Status at Discharge Functional status at discharge: independent ambulation Overall status at discharge: patient is progressing back to baseline Time Spent with Patient Time attestation: Total time spent providing and/or coordinating discharge services: Time spent: Less than 30 minutes Exam Const: General: comfortable and no acute distress Resp: Effort & Inspection: normal respiratory effort Auscultation: clear to auscultation bilaterally Cardio: Rate: regular rate GI: Inspection: non-distended GI Palp: Yes Soft to palpation, No Firmness to palpation present (GI), Yes Tenderness to palpation present (GI) (mild tenderness over incision ) and No Guarding due to palpation present (GI) Auscultation: normal bowel sounds Psych: Appearance: grossly normal Mental Status: mental status grossly normal DS: Data Data Completed and Pending Pending studies at discharge: Pending at discharge 03/02/25 14:33 Surgical [PTH] Routine Discharge Plan Discharge Discharging Clinician: Zachariah Garcia Patient Disposition: Home Activity: as tolerated and pelvic rest Diet: regular Patient Instructions: Antibiotic Form, (DC) Patient Language: Kiswahili Stand Alone Forms: General Discharge Information Follow-up/Referrals: Wilfredo Toribio MD [Primary Care Provider, [facility] STILL OPERATOR] Discharge Medications: New oxycodone-acetaminophen 5-325 mg tablet 1 tablet PO Q6H PRN (Reason: pain) Qty: 28 0RF ferrous sulfate 325 mg (65 mg iron) tablet 325 mg PO DAILY Qty: 30 0RF ibuprofen 600 mg tablet 600 mg PO Q6H PRN (Reason: pain) Qty: 30 0RF sennosides-docusate sodium [Senna with Docusate Sodium] 8.6-50 mg tablet 1 tab-cap PO HS Qty: 30 0RF Continued lidocaine 4 % gel 1 applic topical QID PRN (Reason: pain) 10 Days Qty: 30 0RF DHA 200 mg capsule PO Abrysvo (PF) 120 mcg/0.5 mL recon soln 0.5 ml IM ONCE Qty: 1 0RF Rx Instructions: as a single dose ketoconazole-hydrocortisone 2-2.5 % cream 1 applic topical TID 14 Days Qty: 150 0RF Date of admission: 03/02/25 12:37 Primary Care Provider: Wilfredo Toribio Admitting Provider: Wilfredo Toribio Attending physician on admission: Wilfredo Toribio Condition: Stable
[2025-03-04] MEDS: DOCUSATE SODIUM 100 MG CAPSULE PO (09:28)
[2025-03-04] MEDS: SIMETHICONE 80 MG TAB.CHEW PO ×3 (09:28→16:56)
[2025-03-04 15:30] VITALS: BP 126/82; PULSE 82; RESP 14; TEMP 36.9; O2SAT 100
[2025-03-04 19:30] VITALS: BP 118/86; PULSE 84; RESP 16; TEMP 36.8; O2SAT 100
[2025-03-05] MEDS: oxyCODONE HCL (*CRX) 5 MG TAB IR 10 MG PO (03:56)
[2025-03-05] MEDS: IBUPROFEN 600 MG TABLET PO ×2 (05:16→11:25)
[2025-03-05] MEDS: ACETAMINOPHEN 500 MG TABLET 1000 MG PO ×2 (05:16→11:25)
[2025-03-05] MEDS: MULTIVIT/MIN/PREN/FOL AC/IRON TABLET 1 TAB PO (09:08)
[2025-03-05] MEDS: SIMETHICONE 80 MG TAB.CHEW PO (09:08)
[2025-03-05] MEDS: DOCUSATE SODIUM 100 MG CAPSULE PO (09:08)
[2025-03-05 09:16] VITALS: BP 121/84; PULSE 66; RESP 14; TEMP 36.7; O2SAT 99
--- NOTE | 2025-03-05 09:48 | PCCCNOTE ---
Care Coordination. Patient referred to CC for positive syphilis/follow-up concerns and resources. Met with pt. and spoke with RN. Pt. did follow-up with needed syphilis care. Pt. has a 4 year old son and lives home with her parents and son. She plans to return home with family and reports having good support. Pt. reports being setup with [facility] in [place] and will reach out to them to get formula once able to bring baby home. Provided pt. with baby supply basket of care items. She denies any need for center resources. She will be discharging today, but will be coming back to visit infant when her mother is not working, so her mother can watch her 4 year old for her. No further CC needs.
--- NOTE | 2025-03-05 12:45 | PC.NURSE ---
Patient discharged to a no care bed in room 282. is still in the level 2 nursery. Supplies given and patient is aware that she will have to supply her own medications. Dietary notified of no care bed status.
[2025-03-06 09:07] VITALS: BP 125/79; PULSE 71; RESP 18; TEMP 36.8; O2SAT 100
--- NOTE | 2025-03-07 08:29 | WPDHPUPDATE1 ---
History and Physical Update Update Date/Time: 03/07/25 08:29 History and Physical has been reviewed, including an updated exam of the patient. There are NO changes in the patient's condition. Risks, benefits, and alternatives have been discussed and questions answered. Patient agrees to proceed with procedure.
== END 2025-03-05 12:45 | disposition home or self-care (01) | DRG 786 ==
LOC: ANHOBPP 10:37 → ANHOB2 03-04 08:04 → ANHLDR 03-07 09:07 → ANHOB2 03-07 09:07 → ANHOBPP 03-07 09:07
PROVIDERS: Admitting Provider Student in an Organized Health Care Education/Training Program; PCP Obstetrics & Gynecology; Visit Provider Student in an Organized Health Care Education/Training Program
PROC: 10D00Z1 Extraction of Products of Conception, Low, Open Approach (ICD-10-PCS; CPT 59514; principal; 2025-03-02 12:50)
DX: O76 Abnormality in fetal heart rate and rhythm complicating labor and delivery (principal); O60.13X0 Preterm labor second trimester with preterm delivery third trimester, not applicable or unspecified; O98.32 Other infections with a predominantly sexual mode of transmission complicating childbirth; O98.12 Syphilis complicating childbirth; Z37.0 Single live birth; Z3A.35 35 weeks gestation of pregnancy; A60.09 Herpesviral infection of other urogenital tract; A53.9 Syphilis, unspecified
CPT/HCPCS: 36415; 74018; 76819; 80053; 80307; 81001; 84112; 85025; 86593; 86703; 86850; 86880; 86900; 86901; 88307; J0690; A9270; G0432; J1200; J1885; J2274; J2405; J2590; J7120